=== PATIENT | male | born 1955 | race African-American/Black ===

== ENCOUNTER 2017-07-28 06:46 | Observation (INO) | payer OTHER ==
--- OUTSIDE RECORDS SUMMARY | 2017-07-28 06:48 | XMS REPORT | Clinical Summary ---
:1955 Author Organization [facility] Address [address] [place] [address] Care Team Providers Name Role Phone Baldemar Hernandes MD Primary Care Provider Allergies No Known Allergies Current Medications Prescription Sig. Disp. Refills Start Date End Date Status aspirin (ECOTRIN) Take 81 mg by Active 81 MG enteric mouth daily. coated tablet atorvastatin Take 40 mg by Active (LIPITOR) 40 MG mouth nightly. tablet ferrous sulfate 325 Take 325 mg by Active (65 FE) MG tablet mouth daily with breakfast. levothyroxine Take 50 mcg by Active (SYNTHROID, mouth every LEVOTHROID) 50 MCG morning. tablet zolpidem (AMBIEN) Take 10 mg by Active 10 mg tablet mouth nightly as needed for sleep. nitroglycerin Place 0.4 mg Active (NITROSTAT) 0.4 MG under the SL tablet tongue every 5 (five) minutes as needed for chest pain. thiamine 100 MG Take 100 mg by Active tablet mouth daily. clopidogrel Take 75 mg by 12/06/2016 Discontinued (PLAVIX) 75 mg mouth daily. tablet pantoprazole Take 40 mg by 12/06/2016 Discontinued (PROTONIX) 40 MG EC mouth daily. tablet rivaroxaban Take 20 mg by 12/06/2016 Discontinued (XARELTO) tablet mouth daily. HYDROcodone-acetami Take 1 tablet 12/06/2016 Discontinued nophen (NORCO) by mouth every 10-325 mg per 6 (six) hours tablet as needed for moderate pain. pantoprazole Take 20 mg by 12/06/2016 Discontinued (PROTONIX) 20 MG EC mouth daily. tablet pantoprazole Take 1 tablet 30 tablet 0 12/06/2016 01/05/2017 (PROTONIX) 40 MG EC (40 mg total) tablet by mouth daily for 30 days. pantoprazole Take 2 tablets 60 tablet 0 12/06/2016 12/06/2016 Discontinued (PROTONIX) 20 MG EC (40 mg total) tablet by mouth daily for 30 days. Active Problems Problem Noted Date CAD (coronary artery disease) 12/01/2015 H/O: CVA (cerebrovascular accident) 12/01/2015 Essential hypertension 12/01/2015 PUD (peptic ulcer disease) 12/01/2015 Hematemesis 11/30/2015 Hyperlipidemia 11/30/2015 Normochromic anemia 11/30/2015 Chest pain of uncertain etiology 11/29/2015 Encounters Date Type Specialty Care Team Description 03/06/2017 Emergency Emergency Medicine Page Duran, Chest pain, unspecified type (Primary Dx); Drug-seeking behavior 12/05/2016 - Emergency General Internal Domitila Cunha MD Hematemesis with nausea (Primary Dx); 12/06/2016 Medicine Yenny Tanner MD Chest pain at rest after 07/27/2016 Family History Medical History Relation Name Comments Heart disease Sister Relation Name Status Comments Sister Social History Tobacco Use Types Packs/Day Years Used Date Never Smoker Alcohol Use Drinks/Week oz/Week Comments Yes Socially Sex Assigned at Date Recorded Not on file Last Filed Vital Signs Vital Sign Reading Time Taken Blood Pressure 113/71 03/06/2017 10:30 PM CDT Pulse 68 03/06/2017 10:30 PM CDT Temperature 36.9 C (98.4 F) 03/06/2017 5:39 PM CDT Respiratory Rate 18 03/06/2017 10:30 PM CDT Oxygen Saturation 100% 03/06/2017 10:30 PM CDT Inhaled Oxygen Concentration - - Weight 91.6 kg (202 lb) 03/06/2017 5:37 PM CDT Height 172.7 cm (5' 8") 03/06/2017 5:37 PM CDT Body Mass Index 30.71 03/06/2017 5:37 PM CDT Plan of Treatment Health Maintenance Due Date Last Done Comments COLONOSCOPY 08/06/2003 ZOSTER VACCINE 2013 INFLUENZA VACCINE 12/06/2016 Results Estimated GFR (03/06/2017 9:47 PM)Only the most recent of2 resultswithin the time period is included. Component Value Ref Range GFR Non Af Amer 85 mL/min/1.73 m2 GFR Af Amer >90 mL/min/1.73 m2 Comment: Chronic kidney disease: <60 mL/min/1.73m2 Kidney failure: <15 mL/min/1.73m2 The estimated GFR is calculated from the IDMS-traceable Modification of Diet in Renal Disease Equation. The accuracy of the calculation is poor when the creatinine is normal. Calculated values >90 mL/min/1.73m2 are not reported. This equation has not been validated in children (<18 years), women, the elderly (>70 years), or ethnic groups other than Caucasians and Americans. Specimen Performing Laboratory Plasma specimen [facility] DEPARTMENT OF PATHOLOGY AND GENOMIC MEDICINE [address] [place] [address]. [address] [place] [address] Troponin (03/06/2017 9:47 PM)Only the most recent of2 resultswithin the time period is included. Component Value Ref Range Troponin <0.300 0.000 - 0.300 ng/mL Comment: The diagnostic value of a single normal or non-diagnostic result is questionable.Serial samples at 2-6 hour intervals are required to rule out acute myocardial injury. Specimen Performing Laboratory Plasma specimen [facility] DEPARTMENT OF PATHOLOGY AND [employer] MEDICINE [address] [place] [address]. [address] [place] [address] Partial thromboplastin time, activated (03/06/2017 9:47 PM) Component Value Ref Range PTT 27.8 23.0 - 36.0 sec Comment: PTT therapeutic range for unfractionated heparin is 66.0-112.0 seconds which corresponds to Anti-Xa 0.3-0.7 U/mL. The reference range has changed starting 10/06/2009 @12:00pm Specimen Performing Laboratory Blood [facility] DEPARTMENT OF PATHOLOGY AND [facility] [facility]ICINE [address] [place], [place] [address]. [address] [place] [address] Prothrombin time with INR (03/06/2017 9:47 PM)Only the most recent of2 resultswithin the time period is included. Component Value Ref Range Prothrombin time 13.2 12.0 - 15.0 sec INR 1.0 Comment: The International Normalized Ratio (INR) is a therapeutic monitoring tool for patients who are stable on oral anticoagulant therapy. An INR of 2.0-3.0 is suggested for deep vein thrombosis/pulmonary embolism. Specimen Performing Laboratory Blood [facility] DEPARTMENT OF PATHOLOGY AND GENOMIC MEDICINE [address] [place] [address] CBC with platelet and differential (03/06/2017 9:47 PM)Only the most recent of2 resultswithin the time period is included. Component Value Ref Range WBC 4.3 (L) 4.5 - 11.0 k/uL RBC 4.85 4.40 - 6.00 M/uL HGB 13.5 (L) 14.0 - 18.0 g/dL HCT 41.8 41.0 - 51.0 % MCV 86.2 82.0 - 100.0 fL MCH 27.8 27.0 - 34.0 pg MCHC 32.3 31.0 - 37.0 g/dL RDW - SD 47.0 37.0 - 55.0 fL MPV 10.6 8.8 - 13.2 fL Platelet count 222 150 - 400 K/uL Nucleated RBC 0.00 /100 WBC Neutrophils 45.3 39.0 - 69.0 % Lymphocytes 39.3 25.0 - 45.0 % Monocytes 12.1 (H) 0.0 - 10.0 % Eosinophils 2.6 0.0 - 5.0 % Basophils 0.2 0.0 - 1.0 % Immature granulocytes 0.5Comment: "Immature granulocytes" 0.0 - 1.0 % (promyelocytes, myelocytes, metamyelocytes) Specimen Performing Laboratory Blood [facility] PATHOLOGY [address] [address] Lipase level (03/06/2017 9:47 PM) Component Value Ref Range Lipase 45 23 - 300 U/L Specimen Performing Laboratory Plasma specimen [facility] PATHOLOGY AND [address] [address] Comprehensive metabolic panel (03/06/2017 9:47 PM)Only the most recent of2 resultswithin the time period is included. Component Value Ref Range Sodium 142 135 - 148 mEq/L Potassium 3.8 3.5 - 5.0 mEq/L Chloride 101 99 - 109 mEq/L CO2 26 24 - 31 mEq/L Anion gap 15 7 - 15 mEq/L Comment: Starting from August , anion gap calculation no longer incorporates potassium. Please note the change. BUN 13 8 - 24 mg/dL Creatinine 0.9 0.5 - 1.5 mg/dL Glucose 72 65 - 99 mg/dL Calcium 9.6 8.6 - 10.6 mg/dL Protein 8.8 (H) 6.3 - 8.2 g/dL Albumin 4.8 3.5 - 5.0 g/dL A/G ratio 1.20 0.70 - 3.80 Alkaline phosphatase 105 30 - 115 U/L AST 27 15 - 46 U/L ALT 15 10 - 55 U/L Total bilirubin 0.8 0.2 - 1.2 mg/dL Specimen Performing Laboratory Plasma specimen [facility] DEPARTMENT OF PATHOLOGY AND GENOMIC MEDICINE [address] [place] [address]. [address] [place] [address] XR Chest 2 Vw (03/06/2017 7:30 PM)Only the most recent of2 resultswithin the time period is included. Specimen Performing Laboratory [facility] [address] [place] [address] Narrative EXAMINATION:XR CHEST 2 VW CLINICAL HISTORY: Chest Pain COMPARISON:12/05/2016 IMPRESSION: No active disease in the chest. Lungs are clear. Cardiomediastinal silhouette is within normal limits. No effusion or pneumothorax noted. Visualized osseous structures are intact. [id number] Procedure Note Hm Interface, Radiology Results Incoming - 03/06/2017 7:58 PM CDT EXAMINATION: XR CHEST 2 VW CLINICAL HISTORY: Chest Pain COMPARISON: 12/05/2016 IMPRESSION: No active disease in the chest. Lungs are clear. Cardiomediastinal silhouette is within normal limits. No effusion or pneumothorax noted. Visualized osseous structures are intact. [facility]-[id number] ECG 12 lead (03/06/2017 5:28 PM)Only the most recent of3 resultswithin the time period is included. Component Value Ref Range Ventricular rate 68 Atrial rate 68 MA interval 136 QRSD interval 86 QT interval 412 QTC interval 438 P axis 1 40 QRS axis 1 -85 T wave axis -22 EKG impression Normal sinus rhythm-Left axis gngoszamh-Txmhvltz-qyrvkgctf infarct (cited on or before 06-DEC-2016)-Anterolateral infarct , age undetermined-Abnormal ECG-In automated comparison with ECG of 06-DEC-2016 09:26, -Significant changes have occurred- Specimen Performing Laboratory [facility] [address] [place] [address] duplex venous lower extremity (12/06/2016 2:30 PM) Specimen Performing Laboratory [facility] [address] [place] [address] Narrative Vascular Ultrasound Laboratory Lower Extremity Venous Report [address] [facility] [address], [place] [address] Pat.Name:MEI MAYERS Pat.ID:[id number] St.Date: 12/06/2016Refer.MD:ELZA LONG MD Exam Time: 2:06:00 PMStudy Type:LE Venous Height:102.76inDOBAge:1955 ,61Y Sex: MALESonogrphr: Vega Valdez RVT, RDMS Pat. Stat.:Inpatient Room:[address] TapeVol: SHIMNO, CPT - 4: [address] Echo Event ID:[id number] Order ID:[id number] Reason for Study:Edema. PMH of IL, stroke, DVT, PE, CAD. History / Clinical:Other,pain Race:B SUMMARY: DUPLEX SCAN OBSERVATIONS Deep VeinsSuperficial Veins RightLeft RightLeft EIV GSV (prox) NormalNormal CFV Normal Normal (above knee) Femoral Normal Normal GSV (dist) Normal Normal Profunda Normal Normal (below knee) Popliteal Incompetent Incompetent PT (prox) Normal NormalSSV PT (dist) Normal Normal Peroneal Normal Normal RIGHT:There is normal compressibility with no evidence of echogenic material noted within the lumen of the visualized veins.Colorflow and Doppler signals are normal. LEFT: There is normal compressibility with no evidence of echogenic material noted within the lumen of the visualized veins.Colorflow and Doppler signals are normal. PRELIMINARY FINDINGS 1. No evidence of deep venous thrombosis in the visualized veins. 2. Incompetence of the popliteal vein, bilaterally. PHYSICIAN INTERPRETATION Venous examination of the both lower extremities demonstrated no evidence of venous thrombosis in the visualized veins. Venous reflex seen in the popliteal vein, bilaterally. MEASUREMENTS: DOPPLER General Anatomy Right General A 0Left General An 0 Right General A 0.837 sLeft General An1.11 s Right General A 0 TIME Left General An 0 TIME Signed 12/06/2016 04:35 PM Remigio Lambert MD, RPVI Procedure Note Interface, Radiology Results In - 12/06/2016 4:35 PM CDT Vascular Ultrasound Laboratory Lower Extremity Venous Report [address] [place] [address] Pat.Name: MEI MAYERS Pat.ID: [id number] .Date: 12/06/2016 Refer.MD: ELZA LONG MD Exam Time: 2:06:00 PM Study Type:LE Venous Height: 102.76in Age: 3 1955,61Y Sex: MALE Sonogrphr: Vega Valdez RVT, YOLI Pat. Stat.:Inpatient Room: [address] Tape Vol: MK, [facility] - 4: [id number] Echo Event ID:[id number] Order ID: [id number] Reason for Study:Edema. PMH of IL, stroke, DVT, PE, CAD. History / Clinical:Other, pain Race: B SUMMARY: DUPLEX SCAN OBSERVATIONS Deep Veins Superficial Veins Right Left Right Left EIV GSV (prox) Normal Normal CFV Normal Normal (above knee) Femoral Normal Normal GSV (dist) Normal Normal Profunda Normal Normal (below knee) Popliteal Incompetent Incompetent PT (prox) Normal Normal SSV PT (dist) Normal Normal Peroneal Normal Normal RIGHT:There is normal compressibility with no evidence of echogenic material noted within the lumen of the visualized veins.Colorflow and Doppler signals are normal. LEFT: There is normal compressibility with no evidence of echogenic material noted within the lumen of the visualized veins.Colorflow and Doppler signals are normal. PRELIMINARY FINDINGS 1. No evidence of deep venous thrombosis in the visualized veins. 2. Incompetence of the popliteal vein, bilaterally. PHYSICIAN INTERPRETATION Venous examination of the both lower extremities demonstrated no evidence of venous thrombosis in the visualized veins. Venous reflex seen in the popliteal vein, bilaterally. MEASUREMENTS: DOPPLER General Anatomy Right General A 0 Left General An 0 Right General A 0.837 s Left General An 1.11 s Right General A 0 TIME Left General An 0 TIME Signed 12/06/2016 04:35 PM Remigio Lambert MD, RPVI Cv cta coronary arteries w contrast (12/06/2016 12:43 PM) Specimen Performing Laboratory [facility] [address] Nuclear Cardiology and Cardiac CT [address] [place] [address] CTA Coronary Arteries Report Pat.Name:MEI MAYERS Pat.ID:[id number] .Date: 12/06/2016 Refer.MD:ELZA LONG MD Exam Time: 11:29:00 AM Study Type:CTA Coronary Arteries Height:68inWeight:177lb BSA: 1.94 m2 DOBAge:1955,61Y Sex: MALEHR: 79 bpm Nuclear Tech:Liseth Valenzuela RT(R)(CT) CPT - 4: CCTA w Thoracic Aorta (NonCongenital) 73[address];34827 Nuclear Event ID:[id number] Order ID:[id number] Reason for Study:CAD, PE History / Clinical:Coronary artery disease, Hyperlipidemia, Hypertension, Shortness of breath, PCI 2004, 2006, h/o drug use, Family history CAD, HX pe Procedures:CTA Coronary Arteries Race:B SUMMARY: Technique: IV contrast was administered and sequential 0.[address] cuts were obtained through the chest using the Siemens Somatom Force CT scanner. Post-processing and 3D reconstruction were done using the ownCloud workstation. Interactive image viewing and volumetric display and analysis were also performed. CTA RESULTS Left Main: A normal sized 4.3 artery which arises normally from the left sinus of Valsalva and divides into the left anterior descending and circumflex coronary arteries. No significant atherosclerotic plaque is present. Left anterior descending (LAD): A normal sized 3.3mm artery which wraps around the apex and gives off two diagonal branches. Mild calcified and non-calcified atherosclerotic plaque is present in the proximal and mid segments with approximately 35% stenosis in the mid segment. The first diagonal is a 1.5 mm artery which has mild calcified and non-calcified atherosclerotic plaque present but with no significant stenosis. The second diagonal is a 2.0 mm artery which has mild calcified and non-calcified atherosclerotic plaque present but no significant stenosis. Left circumflex: A normal sized 4.8 mm dominant artery which arises normally from the left main and gives off four major obtuse marginal arteries before becoming the posterior descending artery. Mild calcified and non-calcified atherosclerotic plaque is present in the proximal segmentbut without significant stenosis. There is a 17 mm long patent stent after the takeoff of the first obtuse marginal artery. The first obtuse marginal is a 1.7 mm artery which has no significant atherosclerotic plaque present. The second obtuse marginal is a 2.0 mm bifurcating artery which has mild calcified and non-calcified atherosclerotic plaque present but no significant stenosis. The third obtuse marginal is a 1.5 mm artery which has no significant atherosclerotic plaque present. The fourth obtuse marginal is a 2.0 mm artery which has no significant atherosclerotic plaque present. The posterior descending is a 2.0 mm artery which has mild predominantly calcified atherosclerotic plaque present but no significant stenosis. Right coronary artery: A normal sized 3.0 mm non-dominant artery which arises normally from the right sinus of Valsalva and gives off several right ventricular branches, the posterior descending artery and the posterolateral artery. Mild predominantly calcified atherosclerotic plaque is present in the proximal segment but without significant stenosis. Ramus: None. Stents:Patent stent in the proximal to mid circumflex after the takeoff of the first obtuse marginal artery. . Bypass Grafts: None. Pulmonary Arteries: Normal pulmonary artery sizes with no pulmonary emboli identified even in the most distal subsegmental vessels. Left Atrial and Pulmonary Vein Dimensions: Left atrial size (A-P diameter) 3.8 cm. Normal PV anatomy Left superior PV16 mm. Left inferior PV13 mm. Right superior PV16 mm. Right inferior PV13 mm. There is no evidence of the left atrial appendage clot. There is a patent foramen ovale. Left Ventricular Valve Morphology/Function: Aortic valve is tri-leaflet and there is no evidence of stenosis or regurgitation. Mitral valve is normal without evidence of regurgitation. Thoracic Aortic Dimensions: No aortic aneurysm or dissection is seen. Aortic root3.5 cm. Sinotubular junction 2.9 cm. Mid ascending aorta 2.7 cm. Distal ascending aorta 2.5 cm. Aortic arch 2.1 cm.There is normal takeoff of the great vessels except that theleft vertebral artery arises directly from the aortic arch as a variant. Aortic Isthmus 2.2 cm. Descending thoracic aorta 2.2 cm. Pericardium: No pericardial effusion or pericardial thickening. Non-Cardiac Findings: Small hiatal hernia. CONCLUSION CT coronary angiography shows coronary atherosclerosis but no significant coronary artery stenosis. Patent stent in the proximal to mid circumflex after the takeoff of the first obtuse marginal artery. No aortic aneurysm or dissection is seen. Normal pulmonary artery sizes with no pulmonary emboli identified even in the most distal subsegmental vessels. Normal PV anatomy. There is no evidence of the left atrial appendage clot. STUDY QUALITY The study quality is excellent. COMMENTS None. The above report was based on a dedicated Cardiovascular CTA Protocol and interpreted by a [employer] Officer.Should a more comprehensive assessment of non-cardiovascular findings be desired, please consult a radiologist.These images are available in the [facility] [employer] PACS system. Signed 12/06/2016 01:19 PM Trino Russell MD Procedure Note Interface, Radiology Results In - 12/06/2016 1:22 PM CDT Nuclear Cardiology and Cardiac CT [address] [address] CTA Coronary Arteries Report Pat.Name: MEI MAYERS Pat.ID: [id number] .Date: 12/06/2016 Refer.MD: ELZA LONG MD Exam Time: 11:29:00 AM Study Type:CTA Coronary Arteries Height: 68in Weight: 177lb BSA: 1.94 m2 Age: 3 1955,61Y Sex: MALE HR: 79 bpm Nuclear Tech:Liseth Nicolas, RT(R)(CT) CPT - 4: CCTA w Thoracic Aorta (NonCongenital) 13246;82010 Nuclear Event ID:[id number] Order ID: [id number] Reason for Study:CAD, PE History / Clinical:Coronary artery disease, Hyperlipidemia, Hypertension, Shortness of breath, PCI 2004, 2006, h/o drug use, Family history CAD, HX pe Procedures:CTA Coronary Arteries Race: B SUMMARY: Technique: IV contrast was administered and sequential 0.[address] cuts were obtained through the chest using the Siemens Somatom Force CT scanner. Post-processing and 3D reconstruction were done using the [employer] workstation. Interactive image viewing and volumetric display and analysis were also performed. CTA RESULTS Left Main: A normal sized 4.3 artery which arises normally from the left sinus of Valsalva and divides into the left anterior descending and circumflex coronary arteries. No significant atherosclerotic plaque is present. Left anterior descending (LAD): A normal sized 3.3mm artery which wraps around the apex and gives off two diagonal branches. Mild calcified and non-calcified atherosclerotic plaque is present in the proximal and mid segments with approximately 35% stenosis in the mid segment. The first diagonal is a 1.5 mm artery which has mild calcified and non-calcified atherosclerotic plaque present but with no significant stenosis. The second diagonal is a 2.0 mm artery which has mild calcified and non-calcified atherosclerotic plaque present but no significant stenosis. Left circumflex: A normal sized 4.8 mm dominant artery which arises normally from the left main and gives off four major obtuse marginal arteries before becoming the posterior descending artery. Mild calcified and non-calcified atherosclerotic plaque is present in the proximal segment but without significant stenosis. There is a 17 mm long patent stent after the takeoff of the first obtuse marginal artery. The first obtuse marginal is a 1.7 mm artery which has no significant atherosclerotic plaque present. The second obtuse marginal is a 2.0 mm bifurcating artery which has mild calcified and non-calcified atherosclerotic plaque present but no significant stenosis. The third obtuse marginal is a 1.5 mm artery which has no significant atherosclerotic plaque present. The fourth obtuse marginal is a 2.0 mm artery which has no significant atherosclerotic plaque present. The posterior descending is a 2.0 mm artery which has mild predominantly calcified atherosclerotic plaque present but no significant stenosis. Right coronary artery: A normal sized 3.0 mm non-dominant artery which arises normally from the right sinus of Valsalva and gives off several right ventricular branches, the posterior descending artery and the posterolateral artery. Mild predominantly calcified atherosclerotic plaque is present in the proximal segment but without significant stenosis. Ramus: None. Stents: Patent stent in the proximal to mid circumflex after the takeoff of the first obtuse marginal artery. . Bypass Grafts: None. Pulmonary Arteries: Normal pulmonary artery sizes with no pulmonary emboli identified even in the most distal subsegmental vessels. Left Atrial and Pulmonary Vein Dimensions: Left atrial size (A-P diameter) 3.8 cm. Normal PV anatomy Left superior PV16 mm. Left inferior PV13 mm. Right superior PV16 mm. Right inferior PV13 mm. There is no evidence of the left atrial appendage clot. There is a patent foramen ovale. Left Ventricular Valve Morphology/Function: Aortic valve is tri-leaflet and there is no evidence of stenosis or regurgitation. Mitral valve is normal without evidence of regurgitation. Thoracic Aortic Dimensions: No aortic aneurysm or dissection is seen. Aortic root 3.5 cm. Sinotubular junction 2.9 cm. Mid ascending aorta 2.7 cm. Distal ascending aorta 2.5 cm. Aortic arch 2.1 cm. There is normal takeoff of the great vessels except that the left vertebral artery arises directly from the aortic arch as a variant. Aortic Isthmus 2.2 cm. Descending thoracic aorta 2.2 cm. Pericardium: No pericardial effusion or pericardial thickening. Non-Cardiac Findings: Small hiatal hernia. CONCLUSION CT coronary angiography shows coronary atherosclerosis but no significant coronary artery stenosis. Patent stent in the proximal to mid circumflex after the takeoff of the first obtuse marginal artery. No aortic aneurysm or dissection is seen. Normal pulmonary artery sizes with no pulmonary emboli identified even in the most distal subsegmental vessels. Normal PV anatomy. There is no evidence of the left atrial appendage clot. STUDY QUALITY The study quality is excellent. COMMENTS None. The above report was based on a dedicated Cardiovascular CTA Protocol and interpreted by a [employer]. Should a more comprehensive assessment of non-cardiovascular findings be desired, please consult a radiologist. These images are available in the [facility] [employer] PACS system. Signed 12/06/2016 01:19 PM Trino Russell MD B natriuretic peptide (12/05/2016 10:31 PM) Component Value Ref Range BNP 26 0 - 100 pg/mL Specimen Performing Laboratory Blood [facility] DEPARTMENT OF PATHOLOGY AND GENOMIC MEDICINE [address] [place] [id number] Creatine kinase, total (CPK) (12/05/2016 10:31 PM) Component Value Ref Range Creatine kinase 105 39 - 308 U/L Specimen Performing Laboratory Plasma specimen [facility] [facility] [address] [place] [phone] 07/27/2016 Insurance Payer Benefit Plan / Group Subscriber ID Type Phone Address [facility] O MEI MAYERS Personal/Family Self 1955 Home: [id number] [phone] [place] [address]
--- OUTSIDE RECORDS SUMMARY | 2017-07-28 06:50 | XMS REPORT ---
:1955 [facility] Organization [facility] Address [address] [place] [address] Care Team Providers Name Role Phone UNKNOWN, REFFERING Primary Care Provider Unavailable CONNOR FLORES Unavailable Unavailable ORLANDO WILSON Unavailable Unavailable GORAN ALTAMIRANO Unavailable Unavailable SWATHI MAY Unavailable Unavailable Marquise HERNÁNDEZ Unavailable Unavailable OTDEIDRA ROBBINS Unavailable Unavailable CAR PARIKH Unavailable Unavailable Problems This patient has no known problems. Allergies, Adverse Reactions, Alerts This patient has no known allergies or adverse reactions. Medications This patient has no known medications. Encounters Start End Encounter Admission Attending Care Care Encounter Date/Time Date/Time Type Type Clinicians Facility Department ID 2015-11-14 Inpatient [facility] [id number] 22:56:38 2017-04-11 2017-04-11 Outpatient [facility] [id number] 00:00:00 00:00:00 2016-12-30 2016-12-30 Outpatient [facility] [id number] 12:25:19 12:25:19 2016-12-29 2016-12-29 Outpatient [facility] [id number] 21:38:07 21:38:07 2016-12-29 2016-12-29 Emergency [facility] [id number] 19:59:36 19:59:36 Results Test Description Test Time Test Comments Text Results Atomic Results Result Comments TROPONIN I 2017-04-26 06:36:00 Test Item Value Reference Range Comments TROPONIN I (BEAKER) (test lrju=675) < ng/mL 0.00-0.15 Troponin I (TnI) levels must be interpreted in the context of the presenting symptoms and the clinical findings. Elevated TnI levels indicate myocardial damage, but are not specific for ischemic heart disease. Elevated TnI levels are seen in patients with other cardiac conditions (including myocarditis and congestive heart failure), and slight TnI elevations occur in patients with other conditions, including sepsis, renal failure, acidosis, acute neurological disease, and persistent tachyarrhythmia.COMPREHENSIVE METABOLIC [id number] 06:35:00 Test Item Value Reference Range Comments TOTAL PROTEIN (BEAKER) 6.8 gm/dL 6.0-8.5 (test ofmv=822) ALBUMIN (BEAKER) (test 3.6 g/dL 3.5-5.0 cvuz=7204) ALKALINE PHOSPHATASE 83 U/L 30-115 (BEAKER) (test undm=120) BILIRUBIN TOTAL (BEAKER) 0.6 mg/dL 0.1-1.2 (test havo=342) SODIUM (BEAKER) (test 138 meq/L 135-148 pzpn=165) POTASSIUM (BEAKER) (test 3.9 meq/L 3.6-5.5 zogj=279) CHLORIDE (BEAKER) (test 106 meq/L 98-106 avfu=851) CO2 (BEAKER) (test 26 meq/L 20-29 qvrp=376) BLOOD UREA NITROGEN 13 mg/dL 10-26 (BEAKER) (test ljdj=973) CREATININE (BEAKER) (test 0.90 mg/dL 0.50-1.20 lrdn=277) GLUCOSE RANDOM (BEAKER) 112 mg/dL 70-110 (test spzh=927) CALCIUM (BEAKER) (test 9.0 mg/dL 8.5-10.5 plkm=741) AST (SGOT) (BEAKER) (test 15 U/L 5-40 xhez=298) ALT (SGPT) (BEAKER) (test 13 U/L 5-50 stnf=650) EGFR (BEAKER) (test 103 mL/min/1.73 sq ESTIMATED GFR IS NOT iqin=0164) m ACCURATE CREATININE CLEARANCE IN PREDICTING GLOMERULAR FILTRATION RATE. ESTIMATED GFR IS NOT APPLICABLE FOR DIALYSIS PATIENTS. CBC W/PLT COUNT & AUTO [id number] 06:31:00 Test Item Value Reference Range Comments WHITE BLOOD CELL COUNT (BEAKER) (test xpuh=147) 3.8 K/ L 4.0-10.0 RED BLOOD CELL COUNT (BEAKER) (test jnzg=269) 4.11 M/ L 4.20-5.80 HEMOGLOBIN (BEAKER) (test uvoc=608) 11.4 GM/DL 13.0-16.8 HEMATOCRIT (BEAKER) (test zfpt=772) 35.0 % 40.0-50.0 MEAN CORPUSCULAR VOLUME (BEAKER) (test gxjx=556) 85.1 fL 82.0-98.0 MEAN CORPUSCULAR HEMOGLOBIN (BEAKER) (test 27.7 pg 27.0-33.0 cpgm=658) MEAN CORPUSCULAR HEMOGLOBIN CONC (BEAKER) (test 32.6 GM/DL 32.0-36.0 uhmm=624) RED CELL DISTRIBUTION WIDTH (BEAKER) (test 14.9 % 10.3-14.2 tffj=760) PLATELET COUNT (BEAKER) (test gvur=202) 176 K/CU MM 150-430 MEAN PLATELET VOLUME (BEAKER) (test qmen=385) 7.6 fL 6.5-10.5 NUCLEATED RED BLOOD CELLS (BEAKER) (test 0 /100 WBC 0-0 pfhb=020) NEUTROPHILS RELATIVE PERCENT (BEAKER) (test 48 % wexa=257) LYMPHOCYTES RELATIVE PERCENT (BEAKER) (test 35 % wgod=617) MONOCYTES RELATIVE PERCENT (BEAKER) (test 13 % wrae=659) EOSINOPHILS RELATIVE PERCENT (BEAKER) (test 4 % laeu=662) BASOPHILS RELATIVE PERCENT (BEAKER) (test 0 % tpem=135) NEUTROPHILS ABSOLUTE COUNT (BEAKER) (test 1.80 K/ L 1.80-8.00 xqdm=655) LYMPHOCYTES ABSOLUTE COUNT (BEAKER) (test 1.30 K/ L 1.48-4.50 bnqt=541) MONOCYTES ABSOLUTE COUNT (BEAKER) (test 0.50 K/ L 0.00-1.30 lwhb=680) EOSINOPHILS ABSOLUTE COUNT (BEAKER) (test 0.20 K/ L 0.00-0.50 vzop=840) BASOPHILS ABSOLUTE COUNT (BEAKER) (test 0.00 K/ L 0.00-0.20 oqgz=042) [id number] 06:27:00 Test Item Value Reference Range Comments MAGNESIUM (BEAKER) (test tjzo=123) 2.2 mg/dL 1.5-3.0 TROPONIN [id number] 17:59:00 Test Item Value Reference Range Comments TROPONIN I (BEAKER) (test rbwu=822) < ng/mL 0.00-0.15 Troponin I (TnI) levels must be interpreted in the context of the presenting symptoms and the clinical findings. Elevated TnI levels indicate myocardial damage, but are not specific for ischemic heart disease. Elevated TnI levels are seen in patients with other cardiac conditions (including myocarditis and congestive heart failure), and slight TnI elevations occur in patients with other conditions, including sepsis, renal failure, acidosis, acute neurological disease, and persistent tachyarrhythmia.CREATINE KINASE (CK), TOTAL AND [id number] 17:58:00 Test Item Value Reference Range Comments CREATINE KINASE TOTAL (BEAKER) (test riqw=829) 103 U/L 40-250 CREATINE KINASE-MB (BEAKER) (test ppgr=294) 0.7 ng/mL 0.0-4.9 CREATINE KINASE-MB INDEX (BEAKER) (test ydyu=530) 0.7 % CK-MB Reference Range:<5 Normal5-10 Borderline>10 AbnormalHEMOGLOBIN [id number] 11:25:00 Test Item Value Reference Range Comments HEMOGLOBIN A1C (BEAKER) (test escj=013) 5.3 % 4.3-6.1 CBC W/PLT COUNT & AUTO [id number] 11:13:00 Test Item Value Reference Range Comments WHITE BLOOD CELL COUNT (BEAKER) (test swyr=357) 4.1 K/ L 4.0-10.0 RED BLOOD CELL COUNT (BEAKER) (test aais=476) 4.44 M/ L 4.20-5.80 HEMOGLOBIN (BEAKER) (test dxnh=417) 12.3 GM/DL 13.0-16.8 HEMATOCRIT (BEAKER) (test gukw=100) 37.8 % 40.0-50.0 MEAN CORPUSCULAR VOLUME (BEAKER) (test ymjr=885) 85.3 fL 82.0-98.0 MEAN CORPUSCULAR HEMOGLOBIN (BEAKER) (test 27.7 pg 27.0-33.0 wbtn=421) MEAN CORPUSCULAR HEMOGLOBIN CONC (BEAKER) (test 32.5 GM/DL 32.0-36.0 mikk=747) RED CELL DISTRIBUTION WIDTH (BEAKER) (test 16.0 % 10.3-14.2 ruyf=578) PLATELET COUNT (BEAKER) (test vmhj=627) 174 K/CU MM 150-430 MEAN PLATELET VOLUME (BEAKER) (test etvp=397) 8.3 fL 6.5-10.5 NUCLEATED RED BLOOD CELLS (BEAKER) (test 0 /100 WBC 0-0 aksz=023) NEUTROPHILS RELATIVE PERCENT (BEAKER) (test 56 % cwco=364) LYMPHOCYTES RELATIVE PERCENT (BEAKER) (test 29 % dysk=911) MONOCYTES RELATIVE PERCENT (BEAKER) (test 11 % rqvh=616) EOSINOPHILS RELATIVE PERCENT (BEAKER) (test 3 % traq=493) BASOPHILS RELATIVE PERCENT (BEAKER) (test 1 % yryk=966) NEUTROPHILS ABSOLUTE COUNT (BEAKER) (test 2.30 K/ L 1.80-8.00 ctoi=999) LYMPHOCYTES ABSOLUTE COUNT (BEAKER) (test 1.20 K/ L 1.48-4.50 iprq=804) MONOCYTES ABSOLUTE COUNT (BEAKER) (test 0.50 K/ L 0.00-1.30 xkio=995) EOSINOPHILS ABSOLUTE COUNT (BEAKER) (test 0.10 K/ L 0.00-0.50 qfxk=107) BASOPHILS ABSOLUTE COUNT (BEAKER) (test 0.10 K/ L 0.00-0.20 hala=130) CREATINE KINASE (CK), TOTAL AND [id number] 09:35:00 Test Item Value Reference Range Comments CREATINE KINASE TOTAL (BEAKER) (test fldt=086) 92 U/L 40-250 CREATINE KINASE-MB (BEAKER) (test knew=935) 0.8 ng/mL 0.0-4.9 CREATINE KINASE-MB INDEX (BEAKER) (test izou=393) 0.9 % CK-MB Reference Range:<5 Normal5-10 Borderline>10 AbnormalLIPID [id number] 09:29:00 Test Item Value Reference Range Comments TRIGLYCERIDES (BEAKER) (test kzmu=250) 62 mg/dL CHOLESTEROL (BEAKER) (test ajdq=609) 183 mg/dL HDL CHOLESTEROL (BEAKER) (test jobt=743) 62 mg/dL LDL CHOLESTEROL CALCULATED (BEAKER) (test 109 mg/dL zuip=863) Triglyceride Reference Range: Low Risk <150 Borderline 150- 199 High Risk 200-499 Very High Risk >=500Cholesterol Reference Range: Low Risk <200 Borderline 200-239 High Risk > 240HDL Cholesterol Reference Range: Low Risk >=60 High Risk <40LDL Cholesterol Reference Range: Optimal <100 Near Optimal 100-129 Borderline 130-159 High 160-189 Very High >=190BASIC METABOLIC [id number] 09:28:00 Test Item Value Reference Range Comments SODIUM (BEAKER) (test 143 meq/L 135-148 mjbq=846) POTASSIUM (BEAKER) (test 3.8 meq/L 3.6-5.5 lxqp=602) CHLORIDE (BEAKER) (test 108 meq/L 98-106 olyf=065) CO2 (BEAKER) (test 27 meq/L 20-29 eepl=564) BLOOD UREA NITROGEN 11 mg/dL 10-26 (BEAKER) (test nifn=936) CREATININE (BEAKER) (test 0.90 mg/dL 0.50-1.20 yvzl=476) GLUCOSE RANDOM (BEAKER) 80 mg/dL 70-110 (test jktf=993) CALCIUM (BEAKER) (test 9.2 mg/dL 8.5-10.5 llsz=929) EGFR (BEAKER) (test 103 mL/min/1.73 sq m ESTIMATED GFR IS NOT ohpj=9221) ACCURATE CREATININE CLEARANCE IN PREDICTING GLOMERULAR FILTRATION RATE. ESTIMATED GFR IS NOT APPLICABLE FOR DIALYSIS PATIENTS. TROPONIN [id number] 08:27:00 Test Item Value Reference Range Comments TROPONIN I (BEAKER) (test uyzr=927) < ng/mL 0.00-0.15 Troponin I (TnI) levels must be interpreted in the context of the presenting symptoms and the clinical findings. Elevated TnI levels indicate myocardial damage, but are not specific for ischemic heart disease. Elevated TnI levels are seen in patients with other cardiac conditions (including myocarditis and congestive heart failure), and slight TnI elevations occur in patients with other conditions, including sepsis, renal failure, acidosis, acute neurological disease, and persistent tachyarrhythmia.CT, CHEST WITH IV CONTRAST- PE TEST [id number] 02:06:00Reason for exam:->CHEST PAINWhat is the patient's sedation requirement?->No SedationFINAL REPORT EXAMINATION: CHEST CT / PE PROTOCOL CLINICAL HISTORY: CHEST PAIN, SHORTNESS OF BREATH COMPARISON EXAMINATION: 09/15/2015, 03/19/2015, 05/08/2007. TECHNIQUE: Following the administration of I.V. contrast, axial images were acquired through the pulmonary arteries during the early arterial phase of imaging. Following a brief delay, additional axial tomographic imageswere acquired through the thorax. Following postprocessing, coronal and sagittal reformatted images were created and reviewed. The exam was performed according to our departmental dose optimization program which includes automated exposure control , adjustment of the mA and/or kV according to patient'ssize and/or use of iterative reconstructive technique. FINDINGS: No evidence of a central pulmonaryembolus. Evaluation of the smaller pulmonary arteries is limited by suboptimal contrast opacification during the early arterial phase of imaging. The thoracic aorta is normal in caliber. No evidence ofan aortic dissection. The heart is mildly prominent. No evidence of a pericardial effusion. The esophagus is decompressed. No evidence of pathologic lymphadenopathy. The trachea and central airways demonstrate senescent changes of aging. No definite evidence of a discrete endobronchial lesion or significant endoluminal debris. Small curvilinear and reticulonodular opacities are again noted in both lungs, stable. No definite evidence of new lung consolidation, pulmonary edema, pleural effusion, pneumothorax or pneumomediastinum. Limited images of the upper abdomen demonstrate postoperative changes of the stomach. No evidence of an acute osseous abnormality. IMPRESSION: No evidence of a central pulmonary embolus. Evaluation of the smaller pulmonary arteries was limited secondary to suboptimal contrast opacification. Small scattered curvilinear and reticulonodular lung opacities, stable. Postinflammatory change / scarring favored. Signed: Flower Brown [facility] Verified Date/Time: 04/25/2017 02:06:53 Reading Location: [address] Reading Room [id number] 01:05:00 Test Item Value Reference Range Comments PROTIME (BEAKER) (test xepm=449) 10.9 seconds 9.3-12.0 INR (BEAKER) (test dfcb=594) 1.0 <=5.9 PARTIAL THROMBOPLASTIN TIME (BEAKER) (test 28.7 seconds 23.0-35.0 lopf=243) RECOMMENDED COUMADIN/WARFARIN INR THERAPY RANGESSTANDARD DOSE: 2.0 - 3.0 Includes: PROPHYLAXIS forvenous thrombosis, systemic embolization; TREATMENT for venous thrombosis and/or pulmonary embolus.HIGH RISK: Target INR is 2.5-3.5 for patients with mechanical heart valves.CBC W/PLT COUNT & AUTO [id number] 00:48:00 Test Item Value Reference Range Comments WHITE BLOOD CELL COUNT (BEAKER) (test xjiq=266) 5.9 K/ L 4.0-10.0 RED BLOOD CELL COUNT (BEAKER) (test wwdb=791) 4.90 M/ L 4.20-5.80 HEMOGLOBIN (BEAKER) (test bkmy=641) 13.5 GM/DL 13.0-16.8 HEMATOCRIT (BEAKER) (test jran=385) 41.8 % 40.0-50.0 MEAN CORPUSCULAR VOLUME (BEAKER) (test dfxp=610) 85.2 fL 82.0-98.0 MEAN CORPUSCULAR HEMOGLOBIN (BEAKER) (test 27.6 pg 27.0-33.0 qwte=919) MEAN CORPUSCULAR HEMOGLOBIN CONC (BEAKER) (test 32.4 GM/DL 32.0-36.0 jbfw=420) RED CELL DISTRIBUTION WIDTH (BEAKER) (test 14.4 % 10.3-14.2 fgqr=682) PLATELET COUNT (BEAKER) (test kmbk=265) 221 K/CU MM 150-430 MEAN PLATELET VOLUME (BEAKER) (test ozse=583) 9.3 fL 6.5-10.5 (MANUAL DIFFERENTIAL)2017-04-25 00:48:00 Test Item Value Reference Range Comments NEUTROPHILS - REL (DIFF) (BEAKER) (test mvtq=4541) 52 % LYMPHOCYTES - REL (DIFF) (BEAKER) (test gzbj=3379) 42 % MONOCYTES - REL (DIFF) (BEAKER) (test dseg=3451) 5 % EOSINOPHILS - REL (DIFF) (BEAKER) (test viok=6176) 1 % NEUTROPHILS - ABS (DIFF) (BEAKER) (test wjfu=5560) 3.07 K/ L 1.80-8.00 LYMPHOCYTES - ABS (DIFF) (BEAKER) (test bfbc=8513) 2.48 K/ L 1.48-4.50 MONOCYTES - ABS (DIFF) (BEAKER) (test yomk=1245) 0.30 K/ L 0.00-1.30 EOSINOPHILS - ABS (DIFF) (BEAKER) (test queo=9933) 0.06 K/ L 0.00-0.50 TOTAL COUNTED (BEAKER) (test tlal=6128) 100 WBC MORPHOLOGY (BEAKER) (test zcwj=545) Normal PLT MORPHOLOGY (BEAKER) (test qzrt=911) Normal RBC MORPHOLOGY (BEAKER) (test sodb=878) Normal CREATINE KINASE (CK), TOTAL AND [id number] 23:58:00 Test Item Value Reference Range Comments CREATINE KINASE TOTAL (BEAKER) (test feaw=087) 107 U/L 40-250 CREATINE KINASE-MB (BEAKER) (test mdkq=917) 0.6 ng/mL 0.0-4.9 CREATINE KINASE-MB INDEX (BEAKER) (test mrjh=747) 0.6 % CK-MB Reference Range:<5 Normal5-10 Borderline>10 AbnormalTROPONIN [id number] 23:58:00 Test Item Value Reference Range Comments TROPONIN I (BEAKER) (test fxos=821) < ng/mL 0.00-0.15 Troponin I (TnI) levels must be interpreted in the context of the presenting symptoms and the clinical findings. Elevated TnI levels indicate myocardial damage, but are not specific for ischemic heart disease. Elevated TnI levels are seen in patients with other cardiac conditions (including myocarditis and congestive heart failure), and slight TnI elevations occur in patients with other conditions, including sepsis, renal failure, acidosis, acute neurological disease, and persistent tachyarrhythmia.BASIC METABOLIC [id number] 23:49:00 Test Item Value Reference Range Comments SODIUM (BEAKER) (test 140 meq/L 135-148 bnye=511) POTASSIUM (BEAKER) (test 5.0 meq/L 3.6-5.5 Specimen markedly olof=179) hemolyzed CHLORIDE (BEAKER) (test 107 meq/L 98-106 ufnd=826) CO2 (BEAKER) (test 23 meq/L 20-29 gwnc=069) BLOOD UREA NITROGEN 11 mg/dL 10-26 (BEAKER) (test znfe=180) CREATININE (BEAKER) (test 0.80 mg/dL 0.50-1.20 Specimen markedly olut=111) hemolyzed GLUCOSE RANDOM (BEAKER) 71 mg/dL 70-110 (test ukvo=181) CALCIUM (BEAKER) (test 9.3 mg/dL 8.5-10.5 ybpa=691) EGFR (BEAKER) (test 118 mL/min/1.73 sq m ESTIMATED GFR IS NOT npts=1773) ACCURATE CREATININE CLEARANCE IN PREDICTING GLOMERULAR FILTRATION RATE. ESTIMATED GFR IS NOT APPLICABLE FOR DIALYSIS PATIENTS. [id number] 23:43:00 Test Item Value Reference Range Comments MAGNESIUM (BEAKER) (test 3.2 mg/dL 1.5-3.0 Specimen markedly hemolyzed guje=917) RAD, CHEST, 2 [id number] 21:20:00Reason for exam:->chest painFINAL REPORT EXAMINATION: 2 VIEW CHEST INDICATION: CHEST PAIN IMPRESSION: No comparison studies are available. No evidence of a discrete pneumonia, pulmonary edema or pleural effusion. The heart is mildly enlarged. Mediastinal contours are sharp. No evidence of an acute osseous abnormality or pneumothorax. There is gaseous distention of the visualized bowel, nonspecific. Dedicated abdominal imaging could be performed for further evaluation if clinically appropriate. Signed: [facility] Verified Date/Time: 04/24 21:20:58 Reading Location: [address] Reading Room TISSUE [id number] 17:51:00Surgical Pathology Report Case: [id number] Authorizing Provider: Carlitos Quesada MD Collected: 02/28/2017 [id number] Ordering Location: [address] MED/SURG Received: 03/01/2017 1141 Pathologist: Jose Hendricks MD Specimens: A) - Biopsy, Gastric B) - Biopsy, Gastroesophageal Junction A. STOMACH, BIOPSY:- ANTRAL MUCOSA WITH MILD CHRONIC INACTIVE GASTRITIS - NEGATIVE FOR INTESTINAL METAPLASIA, DYSPLASIA, AND MALIGNANCY - NEGATIVE FOR H. PYLORI ON WARTHIN- STARRY SPECIAL STAINB. GASTROESOPHAGEAL JUNCTION, BIOPSY:- CARDIAC-TYPE COLUMNAR MUCOSA WITH MILD CHRONIC, FOCALLY ACTIVE INFLAMMATION AND REACTIVE CHANGES - NEGATIVE FOR H. PYLORI ON ROUTINE HISTOLOGIC STAINS - NEGATIVE FOR INTESTINAL METAPLASIA, DYSPLASIA, AND MALIGNANCY- SQUAMOUS EPITHELIUM ABSENT Signing Pathologist Direct Phone Line:[phone] signed by Jose Hendricks MD on 03/02/2017 at 5:51 [id number], [id number] дмитрийThe paperwork, containers, and cassettes are all labeled [id number].The specimen is received in formalin in 2 containers labeled with the patient's name (TALIB) and medical record number.A. The specimen labeled "biopsy, gastric" consists of a 0.3 x 0.2 x 0.1 cm fragment of cummings-white tissue, which is entirely submitted in a single cassette labeled A1.B. The specimen labeled "biopsy, gastroesophageal junction" consists of 2 fragments of cummings-white tissue measuring 0.3-0.4 cm in greatest dimension. The specimen is entirely submitted in a single cassette labeled B1.Microscopic examination is performed and is incorporated in the diagnostic line.[facility] Department ofPathology, [id number] [place] [id number], Tel [facility], Department of Pathology, [address] [place] [address], [facility], [address] [place] [address], [id number] [id number] 14:58:00 Test Item Value Reference Range Comments TROPONIN I (BEAKER) (test gdrt=808) 0.01 ng/mL 0.00-0.15 Troponin I (TnI) levels must be interpreted in the context of the presenting symptoms and the clinical findings. Elevated TnI levels indicate myocardial damage, but are not specific for ischemic heart disease. Elevated TnI levels are seen in patients with other cardiac conditions (including myocarditis and congestive heart failure), and slight TnI elevations occur in patients with other conditions, including sepsis, renal failure, acidosis, acute neurological disease, and persistent tachyarrhythmia.TROPONIN [id number] 05:27:00 Test Item Value Reference Range Comments TROPONIN I (BEAKER) (test wljt=988) 0.02 ng/mL 0.00-0.15 Troponin I (TnI) levels must be interpreted in the context of the presenting symptoms and the clinical findings. Elevated TnI levels indicate myocardial damage, but are not specific for ischemic heart disease. Elevated TnI levels are seen in patients with other cardiac conditions (including myocarditis and congestive heart failure), and slight TnI elevations occur in patients with other conditions, including sepsis, renal failure, acidosis, acute neurological disease, and persistent tachyarrhythmia.LIPID [id number] 05:21:00 Test Item Value Reference Range Comments TRIGLYCERIDES (BEAKER) (test acrd=624) 44 mg/dL CHOLESTEROL (BEAKER) (test ckqf=552) 184 mg/dL HDL CHOLESTEROL (BEAKER) (test icxw=152) 56 mg/dL LDL CHOLESTEROL CALCULATED (BEAKER) (test 119 mg/dL zomd=762) Triglyceride Reference Range: Low Risk <150 Borderline 150- 199 High Risk 200-499 Very High Risk >=500Cholesterol Reference Range: Low Risk <200 Borderline 200-239 High Risk > 240HDL Cholesterol Reference Range: Low Risk >=60 High Risk <40LDL Cholesterol Reference Range: Optimal <100 Near Optimal 100-129 Borderline 130-159 High 160-189 Very High >=190COMPREHENSIVE METABOLIC [id number] 05:21:00 Test Item Value Reference Range Comments TOTAL PROTEIN (BEAKER) 7.0 gm/dL 6.0-8.5 (test apyx=339) ALBUMIN (BEAKER) (test 3.7 g/dL 3.5-5.0 oemh=4186) ALKALINE PHOSPHATASE 87 U/L 30-115 (BEAKER) (test uzmz=240) BILIRUBIN TOTAL (BEAKER) 0.7 mg/dL 0.1-1.2 (test btre=904) SODIUM (BEAKER) (test 141 meq/L 135-148 hfkz=963) POTASSIUM (BEAKER) (test 3.6 meq/L 3.6-5.5 aoah=279) CHLORIDE (BEAKER) (test 108 meq/L 98-106 bkqq=303) CO2 (BEAKER) (test 29 meq/L 20-29 jixb=512) BLOOD UREA NITROGEN 15 mg/dL 10-26 (BEAKER) (test hqof=562) CREATININE (BEAKER) (test 0.82 mg/dL 0.50-1.20 otss=655) GLUCOSE RANDOM (BEAKER) 59 mg/dL 70-110 (test yhtn=602) CALCIUM (BEAKER) (test 9.2 mg/dL 8.5-10.5 rioz=056) AST (SGOT) (BEAKER) (test 14 U/L 5-40 olyn=900) ALT (SGPT) (BEAKER) (test 9 U/L 5-50 cayt=167) EGFR (BEAKER) (test 115 mL/min/1.73 sq ESTIMATED GFR IS NOT gveq=1928) m ACCURATE CREATININE CLEARANCE IN PREDICTING GLOMERULAR FILTRATION RATE. ESTIMATED GFR IS NOT APPLICABLE FOR DIALYSIS PATIENTS. HEMOGLOBIN [id number] 05:19:00 Test Item Value Reference Range Comments HEMOGLOBIN A1C (BEAKER) (test iejb=436) 5.3 % 4.3-6.1 CBC W/PLT COUNT & AUTO [id number] 05:00:00 Test Item Value Reference Range Comments WHITE BLOOD CELL COUNT (BEAKER) (test ywew=804) 4.1 K/ L 4.0-10.0 RED BLOOD CELL COUNT (BEAKER) (test moug=820) 4.29 M/ L 4.20-5.80 HEMOGLOBIN (BEAKER) (test vqzf=212) 12.1 GM/DL 13.0-16.8 HEMATOCRIT (BEAKER) (test zfpg=754) 35.9 % 40.0-50.0 MEAN CORPUSCULAR VOLUME (BEAKER) (test vsvt=568) 83.7 fL 82.0-98.0 MEAN CORPUSCULAR HEMOGLOBIN (BEAKER) (test 28.2 pg 27.0-33.0 jfcs=375) MEAN CORPUSCULAR HEMOGLOBIN CONC (BEAKER) (test 33.7 GM/DL 32.0-36.0 fsxk=217) RED CELL DISTRIBUTION WIDTH (BEAKER) (test 14.9 % 10.3-14.2 zfxh=087) PLATELET COUNT (BEAKER) (test gbql=126) 185 K/CU MM 150-430 MEAN PLATELET VOLUME (BEAKER) (test vtbk=316) 10.0 fL 6.5-10.5 NUCLEATED RED BLOOD CELLS (BEAKER) (test 0 /100 WBC 0-0 kkze=419) NEUTROPHILS RELATIVE PERCENT (BEAKER) (test 39 % ykee=202) LYMPHOCYTES RELATIVE PERCENT (BEAKER) (test 41 % buyj=419) MONOCYTES RELATIVE PERCENT (BEAKER) (test 16 % vuzg=053) EOSINOPHILS RELATIVE PERCENT (BEAKER) (test 4 % swem=073) BASOPHILS RELATIVE PERCENT (BEAKER) (test 1 % fhwq=775) NEUTROPHILS ABSOLUTE COUNT (BEAKER) (test 1.59 K/ L 1.80-8.00 oilw=017) LYMPHOCYTES ABSOLUTE COUNT (BEAKER) (test 1.71 K/ L 1.48-4.50 imdb=440) MONOCYTES ABSOLUTE COUNT (BEAKER) (test 0.64 K/ L 0.00-1.30 eelo=849) EOSINOPHILS ABSOLUTE COUNT (BEAKER) (test 0.17 K/ L 0.00-0.50 oxnb=351) BASOPHILS ABSOLUTE COUNT (BEAKER) (test 0.02 K/ L 0.00-0.20 xnaa=888) RAD, CHEST, 1 VIEW, NON [id number] 20:14:00Reason for exam:->CHEST PAINPt has chest pain started around 3:30 after walking. Chest pain describe as heavy. Should this be performed at the bedside?->YesFINAL REPORT EXAMINATION: AP PORTABLE CHEST RADIOGRAPH CLINICAL INDICATION:Chest pain IMPRESSION: Compared with 01/13/2017. No evidence of new focal lung consolidation, pulmonary edema or pleural effusion. The heart size is normal. Mediastinal contours are sharp and stable. No evidence of an acute osseous abnormality or pneumothorax. Signed: Flower Brown MDRthe [facility] [place] Verified Date /Time: 02/27/2017 20:14:06 Reading Location: [address] Reading Room . [id number] 19:24:00 Test Item Value Reference Range Comments TROPONIN I (BEAKER) (test ecwv=270) 0.02 ng/mL 0.00-0.15 Troponin I (TnI) levels must be interpreted in the context of the presenting symptoms and the clinical findings. Elevated TnI levels indicate myocardial damage, but are not specific for ischemic heart disease. Elevated TnI levels are seen in patients with other cardiac conditions (including myocarditis and congestive heart failure), and slight TnI elevations occur in patients with other conditions, including sepsis, renal failure, acidosis, acute neurological disease, and persistent tachyarrhythmia.COMPREHENSIVE METABOLIC [id number] 19:23:00 Test Item Value Reference Range Comments TOTAL PROTEIN (BEAKER) 8.3 gm/dL 6.0-8.5 (test nvjs=138) ALBUMIN (BEAKER) (test 4.4 g/dL 3.5-5.0 arpf=6366) ALKALINE PHOSPHATASE 106 U/L 30-115 (BEAKER) (test kuwk=492) BILIRUBIN TOTAL (BEAKER) 0.8 mg/dL 0.1-1.2 (test pwgf=005) SODIUM (BEAKER) (test 140 meq/L 135-148 hlom=211) POTASSIUM (BEAKER) (test 3.4 meq/L 3.6-5.5 yhqu=210) CHLORIDE (BEAKER) (test 105 meq/L 98-106 wyzm=887) CO2 (BEAKER) (test 26 meq/L 20-29 kltg=477) BLOOD UREA NITROGEN 15 mg/dL 10-26 (BEAKER) (test dfss=113) CREATININE (BEAKER) (test 0.92 mg/dL 0.50-1.20 sxzc=958) GLUCOSE RANDOM (BEAKER) 68 mg/dL 70-110 (test yzkd=884) CALCIUM (BEAKER) (test 9.8 mg/dL 8.5-10.5 lytl=967) AST (SGOT) (BEAKER) (test 18 U/L 5-40 tesk=184) ALT (SGPT) (BEAKER) (test 12 U/L 5-50 kpse=930) EGFR (BEAKER) (test 101 mL/min/1.73 sq ESTIMATED GFR IS NOT tovg=3002) m ACCURATE CREATININE CLEARANCE IN PREDICTING GLOMERULAR FILTRATION RATE. ESTIMATED GFR IS NOT APPLICABLE FOR DIALYSIS PATIENTS. CBC W/PLT COUNT & AUTO [id number] 19:11:00 Test Item Value Reference Range Comments WHITE BLOOD CELL COUNT (BEAKER) (test tkgx=795) 4.4 K/ L 4.0-10.0 RED BLOOD CELL COUNT (BEAKER) (test jmrc=264) 4.86 M/ L 4.20-5.80 HEMOGLOBIN (BEAKER) (test mcub=244) 14.1 GM/DL 13.0-16.8 HEMATOCRIT (BEAKER) (test dglp=958) 40.9 % 40.0-50.0 MEAN CORPUSCULAR VOLUME (BEAKER) (test vdwi=388) 84.2 fL 82.0-98.0 MEAN CORPUSCULAR HEMOGLOBIN (BEAKER) (test 29.0 pg 27.0-33.0 jnsb=758) MEAN CORPUSCULAR HEMOGLOBIN CONC (BEAKER) (test 34.5 GM/DL 32.0-36.0 ulhu=927) RED CELL DISTRIBUTION WIDTH (BEAKER) (test 14.9 % 10.3-14.2 gxpo=571) PLATELET COUNT (BEAKER) (test bope=092) 195 K/CU MM 150-430 MEAN PLATELET VOLUME (BEAKER) (test xtns=679) 10.2 fL 6.5-10.5 NUCLEATED RED BLOOD CELLS (BEAKER) (test 0 /100 WBC 0-0 gzbo=929) NEUTROPHILS RELATIVE PERCENT (BEAKER) (test 46 % ygrx=635) LYMPHOCYTES RELATIVE PERCENT (BEAKER) (test 42 % yndv=367) MONOCYTES RELATIVE PERCENT (BEAKER) (test 10 % vtnv=461) EOSINOPHILS RELATIVE PERCENT (BEAKER) (test 2 % cxdy=382) BASOPHILS RELATIVE PERCENT (BEAKER) (test 1 % vsoj=662) NEUTROPHILS ABSOLUTE COUNT (BEAKER) (test 2.03 K/ L 1.80-8.00 bamw=409) LYMPHOCYTES ABSOLUTE COUNT (BEAKER) (test 1.83 K/ L 1.48-4.50 rslg=384) MONOCYTES ABSOLUTE COUNT (BEAKER) (test 0.45 K/ L 0.00-1.30 eqna=492) EOSINOPHILS ABSOLUTE COUNT (BEAKER) (test 0.08 K/ L 0.00-0.50 qzwv=554) BASOPHILS ABSOLUTE COUNT (BEAKER) (test 0.02 K/ L 0.00-0.20 shzw=605) Comprehensive Metabolic [id number] 18:31:00 Test Item Value Reference Range Comments Sodium (test code=NA) 139 mmol/L 135-145 Potassium (test code=K) 3.7 mmol/L 3.5-5.1 Chloride (test code=CL) 111 mmol/L 98-105 Carbon Dioxide (test 24 mmol/L 22-29 code=CO2) Anion Gap (test 4 mmol/L 7-16 code=AGAP) Glucose (test code=GLU) 66 mg/dL 70-115 Blood Urea Nitrogen 10 mg/dL 8-23 (test code=BUN) Creatinine (test 0.9 mg/dL 0.7-1.2 code=CREAT) BUN/Creatinine Ratio 11.1 (test code=BCRATIO) Calcium (test code=CA) 9.3 mg/dL 8.3-10.5 Prot Total (test 7.2 g/dL 6.4-8.3 code=TP) Albumin (test code=ALB) 3.8 g/dL 3.5-5.2 A/G Ratio (test 1.1 Ratio code=AGRATIO) Globulin (test 3.4 2.9-3.1 code=GLOB) Bili Total (test 0.4 mg/dL 0.1-0.9 code=TBIL) Alk Phos (test 92 U/L 40-129 code=APHOS) AST (test code=AST) 19 U/L 1-40 ALT (test code=ALT) 11 U/L 1-41 Estimated GFR (test >60 eGFR (estimated Glomerular code=GFR) mL/min/1.73m2 Filtration Rate) is an estimated value,calculated from the patient's serum creatinine using the MDRD equation.It is NOT the patient's actual GFR. The eGFR provides a more clinicallyuseful measure of kidney disease than serum creatinine alone.This calculation takes sex and race into account, if the informationis provided. If the race is not provided, and the patient isAfrican-Malawian, multiply by 1.212. If sex is not provided, and thepatient is female, multiply by 0.742. Results for patients <18 years ofage have not been validated by the MDRD study and should be interpretedwith caution.eGFR Result Interpretation:eGFR > or=60 is in the Normal RangeeGFR < 60 may mean kidney diseaseeGFR < 15 may mean kidney failureRanges recommended by the National Kidney Foundation,http://nkdep.ni h.gov CK [id number] 18:30:00 Test Item Value Reference Range Comments CK (test code=CK) 117 39-308 CK performed on Integra 400 CKMB (test code=CKMB) <1.0 ng/mL 0.0-4.3 CKMB% (test code=CKMBP) No Calc % Unable to calculate due to one or more values out of test measurement range. CK [id number] 18:30:00 Test Item Value Reference Range Comments CK (test code=CK) 117 U/L 39-308 Partial Thromboplastin [id number] 18:25:00 Test Item Value Reference Range Comments aPTT (test code=PTT) 18.1 seconds 22.4-33.2 Prothrombin [id number] 18:25:00 Test Item Value Reference Range Comments PT (test code=PT) 10.4 seconds 9.6-13.1 INR (test code=INR) 1.04 Ratio 0.6-1.2 Troponin [id number] 18:25:00 Test Item Value Reference Range Comments Troponin I (test code=TNI) <0.05 ng/mL 0.00-0.04 Values of <0.05 ng/ mL are considered negative. Values 0.40 ng/mL are considered indicative of myocardial injury. Values 0.05 to 0.39 ng/mL are indeterminate. CBC with [id number] 18:12:00 Test Item Value Reference Range Comments WBC (test code=WBC) 5.1 K/cumm 4.4-10.5 RBC (test code=RBC) 4.77 M/cumm 4.10-5.70 Hemoglobin (test code=HGB) 13.5 gm/dL 13.4-17.4 Hematocrit (test code=HCT) 40.8 % 38.7-52.0 MCV (test code=MCV) 85.5 fL 80-100 MCH (test code=MCH) 28.3 pg 27.0-32.5 MCHC (test code=MCHC) 33.1 % 32.0-37.5 RDW (test code=RDW) 15.5 % 11.5-14.5 Platelet Count (test code=PLTCT) 167 K/cumm 140-440 MPV (test code=MPV) 10.1 fL Diff Method (test code=DIFFM) Auto Neutrophil (test code=NEUT) 53.6 % 36-70 Lymphocyte (test code=LYMPH) 32.7 % 12-44 Monocyte (test code=MONO) 11.2 % 0-11 Eosinophil (test code=EOS) 2.5 % 0-7 Basophil (test code=BASO) 0.0 % 0-2 Neutro Abs (test code=ANEUT) 2.7 K/cumm 1.6-7.4 Lymph Abs (test code=ALYMPH) 1.7 K/cumm 0.5-4.6 [place] Abs (test code=AMONO) 0.6 K/cumm 0.0-1.2 Eos Abs (test code=AEOS) 0.13 K/cumm 0.00-0.74 Baso Abs (test code=ABASO) 0.0 K/cumm 0.00-0.21 XR-H CHEST 1 [id number] 17:33:19CHEST X-RAY 1 VIEW Location: [id number] HISTORY: Chest painTechnique:A single frontal view of the chest was obtained. [facility] September [facility], 2016 at 1340 hoursFindings:The bony structures are unremarkable. The aortic, hilar, and cardiacoutlines are normal. The lungs are clear of infiltrates or nodules. Nopneumothorax. No pleural effusions. IMPRESSION:Normal 1 view chest x-ray.SEDIMENTATION [id number] 09:57:00 Test Item Value Reference Range Comments SEDIMENTATION RATE, ERYTHROCYTE (BEAKER) (test 11 mm/HR 0-20 ipyx=078) HEMOGLOBIN [id number] 09:54:00 Test Item Value Reference Range Comments HEMOGLOBIN A1C (BEAKER) (test ykrq=172) 5.3 % 4.3-6.1 T4, [id number] 07:42:00 Test Item Value Reference Range Comments FREE T4 (BEAKER) (test enrd=454) 0.93 ng/dL 0.70-1.48 TSH/FREE T4 IF [id number] 07:08:00 Test Item Value Reference Range Comments THYROID STIMULATING HORMONE (BEAKER) (test 7.82 uIU/mL 0.35-4.94 dcbf=978) TROPONIN [id number] 06:53:00 Test Item Value Reference Range Comments TROPONIN I (BEAKER) (test fpac=625) < ng/mL 0.00-0.03 Troponin I (TnI) levels must be interpreted in the context of the presenting symptoms and the clinical findings. Elevated TnI levels indicate myocardial damage, but are not specific for ischemic heart disease. Elevated TnI levels are seen in patients with other cardiac conditions (including myocarditis and congestive heart failure), and slight TnI elevations occur in patients with other conditions, including sepsis, renal failure, acidosis, acute neurological disease, and persistent tachyarrhythmia.[id number] 06:52:00 Test Item Value Reference Range Comments PHOSPHORUS (BEAKER) (test urvo=395) 3.4 mg/dL 2.3-4.7 [id number] 06:52:00 Test Item Value Reference Range Comments MAGNESIUM (BEAKER) (test vegu=210) 2.0 mg/dL 1.6-2.6 BASIC METABOLIC [id number] 06:52:00 Test Item Value Reference Range Comments SODIUM (BEAKER) (test 142 meq/L 136-145 hqts=885) POTASSIUM (BEAKER) (test 3.6 meq/L 3.5-5.1 akbv=720) CHLORIDE (BEAKER) (test 110 meq/L 98-107 ltry=465) CO2 (BEAKER) (test 27 meq/L 22-29 ohca=008) BLOOD UREA NITROGEN 10 mg/dL 7-21 (BEAKER) (test xwkt=895) CREATININE (BEAKER) (test 0.78 mg/dL 0.57-1.25 fvnj=150) GLUCOSE RANDOM (BEAKER) 92 mg/dL 70-105 (test vtux=156) CALCIUM (BEAKER) (test 9.0 mg/dL 8.4-10.2 rgol=198) EGFR (BEAKER) (test 122 mL/min/1.73 sq m ESTIMATED GFR IS NOT lkwg=9797) ACCURATE CREATININE CLEARANCE IN PREDICTING GLOMERULAR FILTRATION RATE. ESTIMATED GFR IS NOT APPLICABLE FOR DIALYSIS PATIENTS. LIPID [id number] 06:52:00 Test Item Value Reference Range Comments TRIGLYCERIDES (BEAKER) (test tztj=589) 44 mg/dL CHOLESTEROL (BEAKER) (test aljt=102) 153 mg/dL HDL CHOLESTEROL (BEAKER) (test uvlm=457) 52 mg/dL LDL CHOLESTEROL CALCULATED (BEAKER) (test 92 mg/dL kvge=281) Triglyceride Reference Range: Low Risk <150 Borderline 150- 199 High Risk 200-499 Very High Risk >=500Cholesterol Reference Range: Low Risk <200 Borderline 200-239 High Risk > 240HDL Cholesterol Reference Range: Low Risk >=60 High Risk <40LDL Cholesterol Reference Range: Optimal <100 Near Optimal 100-129 Borderline 130-159 High 160-189 Very High >=190HEPATIC FUNCTION [id number] 06:52:00 Test Item Value Reference Range Comments TOTAL PROTEIN (BEAKER) (test caql=902) 6.5 gm/dL 6.0-8.3 ALBUMIN (BEAKER) (test bpfq=7041) 3.3 g/dL 3.5-5.0 BILIRUBIN TOTAL (BEAKER) (test tjjv=226) 0.5 mg/dL 0.2-1.2 BILIRUBIN DIRECT (BEAKER) (test gzuk=579) 0.2 mg/dL 0.1-0.5 ALKALINE PHOSPHATASE (BEAKER) (test skqj=308) 78 U/L 40-150 AST (SGOT) (BEAKER) (test enzk=710) 17 U/L 5-34 ALT (SGPT) (BEAKER) (test nfxe=009) 11 U/L 6-55 C-REACTIVE [id number] 06:52:00 Test Item Value Reference Range Comments C-REACTIVE PROTEIN (BEAKER) (test bidy=735) 0.08 mg/dL 0.00-0.50 CREATINE KINASE (CK), TOTAL AND [id number] 06:52:00 Test Item Value Reference Range Comments CREATINE KINASE TOTAL (BEAKER) (test pirm=202) 103 U/L 29-200 CREATINE KINASE-MB (BEAKER) (test rsvj=433) 0.8 ng/mL 0.0-6.6 CREATINE KINASE-MB INDEX (BEAKER) (test wukv=397) 0.8 % CK-MB Reference Range:<6.7 Normal6.7-10.0 Borderline>10.0 AbnormalCBC W/PLT COUNT & AUTO [id number] 06:23:00 Test Item Value Reference Range Comments WHITE BLOOD CELL COUNT (BEAKER) (test sjhc=550) 4.2 K/ L 3.5-10.5 RED BLOOD CELL COUNT (BEAKER) (test npsh=690) 4.33 M/ L 4.63-6.08 HEMOGLOBIN (BEAKER) (test glmm=273) 11.8 GM/DL 13.7-17.5 HEMATOCRIT (BEAKER) (test ntjy=096) 37.3 % 40.1-51.0 MEAN CORPUSCULAR VOLUME (BEAKER) (test rkyg=318) 86.1 fL 79.0-92.2 MEAN CORPUSCULAR HEMOGLOBIN (BEAKER) (test 27.3 pg 25.7-32.2 pwru=206) MEAN CORPUSCULAR HEMOGLOBIN CONC (BEAKER) (test 31.6 GM/DL 32.3-36.5 nhzy=944) RED CELL DISTRIBUTION WIDTH (BEAKER) (test 14.9 % 11.6-14.4 gdtw=896) PLATELET COUNT (BEAKER) (test xher=198) 164 K/CU MM 150-450 MEAN PLATELET VOLUME (BEAKER) (test gxmg=024) 10.0 fL 9.4-12.4 NUCLEATED RED BLOOD CELLS (BEAKER) (test 0 /100 WBC 0-0 qmdl=560) NEUTROPHILS RELATIVE PERCENT (BEAKER) (test 48 % sxjn=313) LYMPHOCYTES RELATIVE PERCENT (BEAKER) (test 38 % xged=753) MONOCYTES RELATIVE PERCENT (BEAKER) (test 11 % gnhc=899) EOSINOPHILS RELATIVE PERCENT (BEAKER) (test 2 % aagp=601) BASOPHILS RELATIVE PERCENT (BEAKER) (test 1 % nufi=089) NEUTROPHILS ABSOLUTE COUNT (BEAKER) (test 2.02 K/ L 1.78-5.38 kdpm=946) LYMPHOCYTES ABSOLUTE COUNT (BEAKER) (test 1.63 K/ L 1.32-3.57 bkdw=290) MONOCYTES ABSOLUTE COUNT (BEAKER) (test 0.46 K/ L 0.30-0.82 wqbc=050) EOSINOPHILS ABSOLUTE COUNT (BEAKER) (test 0.10 K/ L 0.04-0.54 eraq=483) BASOPHILS ABSOLUTE COUNT (BEAKER) (test 0.02 K/ L 0.01-0.08 cyxj=909) IMMATURE GRANULOCYTES-RELATIVE PERCENT (BEAKER) 0 % 0-1 (test raon=6998) RAD, CHEST, 2 [id number] 19:30:00Reason for exam:->CHEST PAINReason for exam:->GI BLEEDINGFINAL REPORT Chest 2 views 01/13/2017 7:29 PM CLINICAL HISTORY: CHEST PAINGI BLEEDING COMPARISON: 08/23/2016 FINDINGS: The lungs are clear, save for bibasilar linear atelectasis. Cardiomediastinal contours are within normal limits. The central pulmonary vasculature is not engorged. The visualized skeleton is intact.There is gaseous distention of the visualized small bowel and colon. IMPRESSION: 1. No acute cardiopulmonary abnormality.2. Suspected mild ileus. Signed: Karan Mckeon Verified Date/Time: 01/13/2017 19:30:11 Reading Location: [facility] Radiology Reading Room CREATINE KINASE (CK), TOTAL AND [id number] 19:24:00 Test Item Value Reference Range Comments CREATINE KINASE TOTAL (BEAKER) (test ffny=524) 132 U/L 29-200 CREATINE KINASE-MB (BEAKER) (test gzhy=815) 1.0 ng/mL 0.0-6.6 CREATINE KINASE-MB INDEX (BEAKER) (test ljdv=423) 0.8 % CK-MB Reference Range:<6.7 Normal6.7-10.0 Borderline>10.0 AbnormalTROPONIN [id number] 19:24:00 Test Item Value Reference Range Comments TROPONIN I (BEAKER) (test excz=307) 0.02 ng/mL 0.00-0.03 Troponin I (TnI) levels must be interpreted in the context of the presenting symptoms and the clinical findings. Elevated TnI levels indicate myocardial damage, but are not specific for ischemic heart disease. Elevated TnI levels are seen in patients with other cardiac conditions (including myocarditis and congestive heart failure), and slight TnI elevations occur in patients with other conditions, including sepsis, renal failure, acidosis, acute neurological disease, and persistent tachyarrhythmia.BASIC METABOLIC [id number] 19:17:00 Test Item Value Reference Range Comments SODIUM (BEAKER) (test 144 meq/L 136-145 zrdm=416) POTASSIUM (BEAKER) (test 3.9 meq/L 3.5-5.1 jqaf=864) CHLORIDE (BEAKER) (test 109 meq/L 98-107 deuz=402) CO2 (BEAKER) (test 27 meq/L 22-29 kyfa=290) BLOOD UREA NITROGEN 9 mg/dL 7-21 (BEAKER) (test qrmt=154) CREATININE (BEAKER) (test 0.82 mg/dL 0.57-1.25 czpm=845) GLUCOSE RANDOM (BEAKER) 69 mg/dL 70-105 (test twwf=766) CALCIUM (BEAKER) (test 9.5 mg/dL 8.4-10.2 nvno=273) EGFR (BEAKER) (test 115 mL/min/1.73 sq m ESTIMATED GFR IS NOT czxc=3989) ACCURATE CREATININE CLEARANCE IN PREDICTING GLOMERULAR FILTRATION RATE. ESTIMATED GFR IS NOT APPLICABLE FOR DIALYSIS PATIENTS. [id number] 18:57:00 Test Item Value Reference Range Comments PROTIME (BEAKER) (test wyjk=885) 12.8 seconds 11.7-14.7 INR (BEAKER) (test dlke=273) 1.0 <=5.9 PARTIAL THROMBOPLASTIN TIME (BEAKER) (test 27.3 seconds 22.5-36.0 iwvw=660) RECOMMENDED COUMADIN/WARFARIN INR THERAPY RANGESSTANDARD DOSE: 2.0 - 3.0 Includes: PROPHYLAXIS forvenous thrombosis, systemic embolization; TREATMENT for venous thrombosis and/or pulmonary embolus.HIGH RISK: Target INR is 2.5-3.5 for patients with mechanical heart valves.CBC W/PLT COUNT & AUTO [id number] 18:49:00 Test Item Value Reference Range Comments WHITE BLOOD CELL COUNT (BEAKER) (test wrjw=296) 3.8 K/ L 3.5-10.5 RED BLOOD CELL COUNT (BEAKER) (test dzje=684) 4.94 M/ L 4.63-6.08 HEMOGLOBIN (BEAKER) (test xztv=973) 13.4 GM/DL 13.7-17.5 HEMATOCRIT (BEAKER) (test kjws=018) 43.0 % 40.1-51.0 MEAN CORPUSCULAR VOLUME (BEAKER) (test toto=439) 87.0 fL 79.0-92.2 MEAN CORPUSCULAR HEMOGLOBIN (BEAKER) (test 27.1 pg 25.7-32.2 ajyy=130) MEAN CORPUSCULAR HEMOGLOBIN CONC (BEAKER) (test 31.2 GM/DL 32.3-36.5 qexa=224) RED CELL DISTRIBUTION WIDTH (BEAKER) (test 15.0 % 11.6-14.4 ejfd=568) PLATELET COUNT (BEAKER) (test hgit=321) 184 K/CU MM 150-450 MEAN PLATELET VOLUME (BEAKER) (test kwbc=067) 10.4 fL 9.4-12.4 NUCLEATED RED BLOOD CELLS (BEAKER) (test 0 /100 WBC 0-0 cdnz=864) NEUTROPHILS RELATIVE PERCENT (BEAKER) (test 49 % qyjt=433) LYMPHOCYTES RELATIVE PERCENT (BEAKER) (test 39 % irdd=883) MONOCYTES RELATIVE PERCENT (BEAKER) (test 11 % fiyi=489) EOSINOPHILS RELATIVE PERCENT (BEAKER) (test 2 % mefo=205) BASOPHILS RELATIVE PERCENT (BEAKER) (test 0 % yjut=761) NEUTROPHILS ABSOLUTE COUNT (BEAKER) (test 1.85 K/ L 1.78-5.38 wzdn=615) LYMPHOCYTES ABSOLUTE COUNT (BEAKER) (test 1.48 K/ L 1.32-3.57 yual=754) MONOCYTES ABSOLUTE COUNT (BEAKER) (test 0.40 K/ L 0.30-0.82 ozkj=670) EOSINOPHILS ABSOLUTE COUNT (BEAKER) (test 0.07 K/ L 0.04-0.54 hvnd=771) BASOPHILS ABSOLUTE COUNT (BEAKER) (test 0.01 K/ L 0.01-0.08 jfwi=511) IMMATURE GRANULOCYTES-RELATIVE PERCENT (BEAKER) 0 % 0-1 (test xzve=1893) CBC with [id number] 04:55:00 Test Item Value Reference Range Comments WBC (test code=WBC) 3.9 K/cumm 4.4-10.5 RBC (test code=RBC) 3.78 M/cumm 4.10-5.70 Hemoglobin (test code=HGB) 11.0 gm/dL 13.4-17.4 Hematocrit (test code=HCT) 34.1 % 38.7-52.0 MCV (test code=MCV) 90.2 fL 80-100 MCH (test code=MCH) 29.1 pg 27.0-32.5 MCHC (test code=MCHC) 32.3 % 32.0-37.5 RDW (test code=RDW) 14.0 % 11.5-14.5 Platelet Count (test code=PLTCT) 90 K/cumm 140-440 MPV (test code=MPV) 12.4 fL Diff Method (test code=DIFFM) Auto Neutrophil (test code=NEUT) 61.5 % 36-70 Lymphocyte (test code=LYMPH) 24.9 % 12-44 Monocyte (test code=MONO) 10.5 % 0-11 Eosinophil (test code=EOS) 2.8 % 0-7 Basophil (test code=BASO) 0.3 % 0-2 Neutro Abs (test code=ANEUT) 2.4 K/cumm 1.6-7.4 Lymph Abs (test code=ALYMPH) 1.0 K/cumm 0.5-4.6 [place] Abs (test code=AMONO) 0.4 K/cumm 0.0-1.2 Eos Abs (test code=AEOS) 0.11 K/cumm 0.00-0.74 Baso Abs (test code=ABASO) 0.0 K/cumm 0.00-0.21 CK [id number] 02:21:00 Test Item Value Reference Range Comments CK (test code=CK) 125 U/L 39-308 CK [id number] 02:21:00 Test Item Value Reference Range Comments CK (test code=CK) 125 39-308 CK performed on Integra 400 CKMB (test code=CKMB) 1.4 ng/mL 0.0-4.3 CKMB% (test code=CKMBP) 1.1 % CBC with [id number] 01:58:00 Test Item Value Reference Range Comments WBC (test code=WBC) 4.2 K/cumm 4.4-10.5 RBC (test code=RBC) 3.87 M/cumm 4.10-5.70 Hemoglobin (test code=HGB) 11.3 gm/dL 13.4-17.4 Hematocrit (test code=HCT) 34.3 % 38.7-52.0 MCV (test code=MCV) 88.6 fL 80-100 MCH (test code=MCH) 29.2 pg 27.0-32.5 MCHC (test code=MCHC) 32.9 % 32.0-37.5 RDW (test code=RDW) 14.0 % 11.5-14.5 Platelet Count (test code=PLTCT) 160 K/cumm 140-440 MPV (test code=MPV) 10.7 fL Diff Method (test code=DIFFM) Auto Neutrophil (test code=NEUT) 57.7 % 36-70 Lymphocyte (test code=LYMPH) 30.2 % 12-44 Monocyte (test code=MONO) 9.0 % 0-11 Eosinophil (test code=EOS) 2.9 % 0-7 Basophil (test code=BASO) 0.2 % 0-2 Neutro Abs (test code=ANEUT) 2.4 K/cumm 1.6-7.4 Lymph Abs (test code=ALYMPH) 1.3 K/cumm 0.5-4.6 [place] Abs (test code=AMONO) 0.4 K/cumm 0.0-1.2 Eos Abs (test code=AEOS) 0.12 K/cumm 0.00-0.74 Baso Abs (test code=ABASO) 0.0 K/cumm 0.00-0.21 Troponin [id number] 01:55:00 Test Item Value Reference Range Comments Troponin I (test code=TNI) <0.05 ng/mL 0.00-0.04 Values of <0.05 ng/ mL are considered negative. Values 0.40 ng/mL are considered indicative of myocardial injury. Values 0.05 to 0.39 ng/mL are indeterminate. Troponin [id number] 20:25:00 Test Item Value Reference Range Comments Troponin I (test code=TNI) <0.05 ng/mL 0.00-0.04 Values of <0.05 ng/ mL are considered negative. Values 0.40 ng/mL are considered indicative of myocardial injury. Values 0.05 to 0.39 ng/mL are indeterminate. CK [id number] 20:24:00 Test Item Value Reference Range Comments CK (test code=CK) 133 U/L 39-308 CK [id number] 20:24:00 Test Item Value Reference Range Comments CK (test code=CK) 133 39-308 CK performed on Integra 400 CKMB (test code=CKMB) 1.1 ng/mL 0.0-4.3 CKMB% (test code=CKMBP) 0.8 % CBC with [id number] 19:21:00 Test Item Value Reference Range Comments WBC (test code=WBC) 5.2 K/cumm 4.4-10.5 RBC (test code=RBC) 3.87 M/cumm 4.10-5.70 Hemoglobin (test code=HGB) 11.5 gm/dL 13.4-17.4 Hematocrit (test code=HCT) 34.4 % 38.7-52.0 MCV (test code=MCV) 88.9 fL 80-100 MCH (test code=MCH) 29.7 pg 27.0-32.5 MCHC (test code=MCHC) 33.4 % 32.0-37.5 RDW (test code=RDW) 13.9 % 11.5-14.5 Platelet Count (test code=PLTCT) 148 K/cumm 140-440 MPV (test code=MPV) 9.7 fL Diff Method (test code=DIFFM) Auto Neutrophil (test code=NEUT) 49.3 % 36-70 Lymphocyte (test code=LYMPH) 39.2 % 12-44 Monocyte (test code=MONO) 8.6 % 0-11 Eosinophil (test code=EOS) 2.3 % 0-7 Basophil (test code=BASO) 0.6 % 0-2 Neutro Abs (test code=ANEUT) 2.6 K/cumm 1.6-7.4 Lymph Abs (test code=ALYMPH) 2.1 K/cumm 0.5-4.6 [place] Abs (test code=AMONO) 0.5 K/cumm 0.0-1.2 Eos Abs (test code=AEOS) 0.12 K/cumm 0.00-0.74 Baso Abs (test code=ABASO) 0.0 K/cumm 0.00-0.21 Partial Thromboplastin [id number] 14:37:00 Test Item Value Reference Range Comments aPTT (test code=PTT) 23.3 seconds 22.4-33.2 Prothrombin [id number] 14:37:00 Test Item Value Reference Range Comments PT (test code=PT) 9.9 seconds 9.6-13.1 INR (test code=INR) 0.99 Ratio 0.6-1.2 Blood Type and [id number] 14:26:00 Test Item Value Reference Range Comments ABO type (test code=ABO) AB Rh Type (test code=RH) Positive Troponin [id number] 14:24:00 Test Item Value Reference Range Comments Troponin I (test code=TNI) <0.05 ng/mL 0.00-0.04 Values of <0.05 ng/ mL are considered negative. Values 0.40 ng/mL are considered indicative of myocardial injury. Values 0.05 to 0.39 ng/mL are indeterminate. CK [id number] 14:21:00 Test Item Value Reference Range Comments CK (test code=CK) 151 39-308 CK performed on Integra 400 CKMB (test code=CKMB) 1.4 ng/mL 0.0-4.3 CKMB% (test code=CKMBP) 0.9 % Comprehensive Metabolic [id number] 14:20:00 Test Item Value Reference Range Comments Sodium (test code=NA) 140 mmol/L 135-145 Potassium (test code=K) 4.0 mmol/L 3.5-5.1 Chloride (test code=CL) 104 mmol/L 98-105 Carbon Dioxide (test 28 mmol/L 22-29 code=CO2) Anion Gap (test 8 mmol/L 7-16 code=AGAP) Glucose (test code=GLU) 70 mg/dL 70-115 Blood Urea Nitrogen 6 mg/dL 8-23 (test code=BUN) Creatinine (test 0.9 mg/dL 0.7-1.2 code=CREAT) BUN/Creatinine Ratio 6.7 (test code=BCRATIO) Calcium (test code=CA) 9.2 mg/dL 8.3-10.5 Prot Total (test 7.0 g/dL 6.4-8.3 code=TP) Albumin (test code=ALB) 4.3 g/dL 3.5-5.2 A/G Ratio (test 1.6 Ratio code=AGRATIO) Globulin (test 2.7 2.9-3.1 code=GLOB) Bili Total (test 0.7 mg/dL 0.1-0.9 code=TBIL) Alk Phos (test 98 U/L 40-129 code=APHOS) AST (test code=AST) 19 U/L 1-40 ALT (test code=ALT) 11 U/L 1-41 Estimated GFR (test >60 eGFR (estimated Glomerular code=GFR) mL/min/1.73m2 Filtration Rate) is an estimated value,calculated from the patient's serum creatinine using the MDRD equation.It is NOT the patient's actual GFR. The eGFR provides a more clinicallyuseful measure of kidney disease than serum creatinine alone.This calculation takes sex and race into account, if the informationis provided. If the race is not provided, and the patient isAfrican-Mal[place]ian, multiply by 1.212. If sex is not provided, and thepatient is female, multiply by 0.742. Results for patients <18 years ofage have not been validated by the MDRD study and should be interpretedwith caution.eGFR Result Interpretation:eGFR > or=60 is in the Normal RangeeGFR < 60 may mean kidney diseaseeGFR < 15 may mean kidney failureRanges recommended by the National Kidney Foundation,http://nkdep.ni h.gov CK [id number] 14:20:00 Test Item Value Reference Range Comments CK (test code=CK) 151 U/L 39-308 CBC with [id number] 13:51:00 Test Item Value Reference Range Comments WBC (test code=WBC) 2.8 K/cumm 4.4-10.5 RBC (test code=RBC) 4.13 M/cumm 4.10-5.70 Hemoglobin (test code=HGB) 11.9 gm/dL 13.4-17.4 Hematocrit (test code=HCT) 36.8 % 38.7-52.0 MCV (test code=MCV) 89.1 fL 80-100 MCH (test code=MCH) 28.8 pg 27.0-32.5 MCHC (test code=MCHC) 32.3 % 32.0-37.5 RDW (test code=RDW) 14.2 % 11.5-14.5 Platelet Count (test code=PLTCT) 162 K/cumm 140-440 MPV (test code=MPV) 10.1 fL Diff Method (test code=DIFFM) Auto Neutrophil (test code=NEUT) 52.5 % 36-70 Lymphocyte (test code=LYMPH) 34.0 % 12-44 Monocyte (test code=MONO) 10.3 % 0-11 Eosinophil (test code=EOS) 2.8 % 0-7 Basophil (test code=BASO) 0.4 % 0-2 Neutro Abs (test code=ANEUT) 1.5 K/cumm 1.6-7.4 Lymph Abs (test code=ALYMPH) 1.0 K/cumm 0.5-4.6 [place] Abs (test code=AMONO) 0.3 K/cumm 0.0-1.2 Eos Abs (test code=AEOS) 0.08 K/cumm 0.00-0.74 Baso Abs (test code=ABASO) 0.0 K/cumm 0.00-0.21 CBC W/PLT COUNT & AUTO [id number] 15:01:00 Test Item Value Reference Range Comments WHITE BLOOD CELL COUNT (BEAKER) (test pgyl=000) 3.8 K/ L 4.0-10.0 RED BLOOD CELL COUNT (BEAKER) (test zqut=823) 4.42 M/ L 4.20-5.80 HEMOGLOBIN (BEAKER) (test jzxq=726) 12.3 GM/DL 13.0-16.8 HEMATOCRIT (BEAKER) (test ontf=729) 38.9 % 40.0-50.0 MEAN CORPUSCULAR VOLUME (BEAKER) (test kjsy=545) 88.0 fL 82.0-98.0 MEAN CORPUSCULAR HEMOGLOBIN (BEAKER) (test 27.7 pg 27.0-33.0 gjqf=509) MEAN CORPUSCULAR HEMOGLOBIN CONC (BEAKER) (test 31.5 GM/DL 32.0-36.0 tcvc=966) RED CELL DISTRIBUTION WIDTH (BEAKER) (test 14.6 % 10.3-14.2 xtqs=113) PLATELET COUNT (BEAKER) (test slos=139) 185 K/CU MM 150-430 MEAN PLATELET VOLUME (BEAKER) (test hgqu=468) 7.8 fL 6.5-10.5 NUCLEATED RED BLOOD CELLS (BEAKER) (test 0 /100 WBC 0-0 wvxe=412) (MANUAL DIFFERENTIAL)2016-08-24 15:01:00 Test Item Value Reference Range Comments NEUTROPHILS - REL (DIFF) (BEAKER) (test lkun=7838) 49 % LYMPHOCYTES - REL (DIFF) (BEAKER) (test fsce=7293) 39 % MONOCYTES - REL (DIFF) (BEAKER) (test udyu=7888) 7 % EOSINOPHILS - REL (DIFF) (BEAKER) (test lwqg=0272) 4 % BASOPHILS - REL (DIFF) (BEAKER) (test ntlv=3182) 1 % NEUTROPHILS - ABS (DIFF) (BEAKER) (test jrxm=1191) 1.86 K/ L 1.80-8.00 LYMPHOCYTES - ABS (DIFF) (BEAKER) (test pjew=5691) 1.48 K/ L 1.48-4.50 MONOCYTES - ABS (DIFF) (BEAKER) (test hsli=7591) 0.27 K/ L 0.00-1.30 EOSINOPHILS - ABS (DIFF) (BEAKER) (test buyx=4979) 0.15 K/ L 0.00-0.50 BASOPHILS - ABS (DIFF) (BEAKER) (test vfdf=0059) 0.04 K/ L 0.00-0.20 TOTAL COUNTED (BEAKER) (test iiqn=9585) 100 WBC MORPHOLOGY (BEAKER) (test ifnw=514) Normal PLT MORPHOLOGY (BEAKER) (test uaht=372) Normal RBC MORPHOLOGY (BEAKER) (test ejaa=242) Normal TROPONIN [id number] 14:45:00 Test Item Value Reference Range Comments TROPONIN I (BEAKER) (test syxs=392) < ng/mL 0.00-0.15 Troponin I (TnI) levels must be interpreted in the context of the presenting symptoms and the clinical findings. Elevated TnI levels indicate myocardial damage, but are not specific for ischemic heart disease. Elevated TnI levels are seen in patients with other cardiac conditions (including myocarditis and congestive heart failure), and slight TnI elevations occur in patients with other conditions, including sepsis, renal failure, acidosis, acute neurological disease, and persistent tachyarrhythmia.CREATINE KINASE (CK), TOTAL AND [id number] 14:44:00 Test Item Value Reference Range Comments CREATINE KINASE TOTAL (BEAKER) (test fsvs=277) 74 U/L 40-250 CREATINE KINASE-MB (BEAKER) (test cpuf=287) 0.7 ng/mL 0.0-4.9 CREATINE KINASE-MB INDEX (BEAKER) (test dfca=143) 0.9 % CK-MB Reference Range:<5 Normal5-10 Borderline>10 AbnormalCBC W/PLT COUNT & AUTO [id number] 08:06:00 Test Item Value Reference Range Comments WHITE BLOOD CELL COUNT (BEAKER) (test ysze=929) 3.4 K/ L 4.0-10.0 RED BLOOD CELL COUNT (BEAKER) (test qzwn=737) 4.27 M/ L 4.20-5.80 HEMOGLOBIN (BEAKER) (test jzcm=292) 11.9 GM/DL 13.0-16.8 HEMATOCRIT (BEAKER) (test stnb=386) 37.3 % 40.0-50.0 MEAN CORPUSCULAR VOLUME (BEAKER) (test balr=082) 87.5 fL 82.0-98.0 MEAN CORPUSCULAR HEMOGLOBIN (BEAKER) (test 28.0 pg 27.0-33.0 yhvu=529) MEAN CORPUSCULAR HEMOGLOBIN CONC (BEAKER) (test 32.0 GM/DL 32.0-36.0 hmrx=186) RED CELL DISTRIBUTION WIDTH (BEAKER) (test 14.6 % 10.3-14.2 vtkq=668) PLATELET COUNT (BEAKER) (test vtrj=358) 171 K/CU MM 150-430 MEAN PLATELET VOLUME (BEAKER) (test qann=849) 7.4 fL 6.5-10.5 NUCLEATED RED BLOOD CELLS (BEAKER) (test 0 /100 WBC 0-0 apsy=202) (MANUAL DIFFERENTIAL)2016-08-24 08:06:00 Test Item Value Reference Range Comments NEUTROPHILS - REL (DIFF) (BEAKER) (test tmgr=3456) 59 % LYMPHOCYTES - REL (DIFF) (BEAKER) (test nhuv=9866) 34 % MONOCYTES - REL (DIFF) (BEAKER) (test cisl=7726) 5 % EOSINOPHILS - REL (DIFF) (BEAKER) (test rukf=5452) 2 % NEUTROPHILS - ABS (DIFF) (BEAKER) (test sntj=8805) 2.01 K/ L 1.80-8.00 LYMPHOCYTES - ABS (DIFF) (BEAKER) (test diqr=8536) 1.16 K/ L 1.48-4.50 MONOCYTES - ABS (DIFF) (BEAKER) (test elab=7065) 0.17 K/ L 0.00-1.30 EOSINOPHILS - ABS (DIFF) (BEAKER) (test ipfz=0798) 0.07 K/ L 0.00-0.50 TOTAL COUNTED (BEAKER) (test irwk=2149) 100 WBC MORPHOLOGY (BEAKER) (test vecm=486) Normal PLT MORPHOLOGY (BEAKER) (test sccl=136) Normal ANISOCYTOSIS (BEAKER) (test nvpk=596) 1+ few CREATINE KINASE (CK), TOTAL AND [id number] 06:48:00 Test Item Value Reference Range Comments CREATINE KINASE TOTAL (BEAKER) (test cisq=772) 73 U/L 40-250 CREATINE KINASE-MB (BEAKER) (test kkqp=714) 0.7 ng/mL 0.0-4.9 CREATINE KINASE-MB INDEX (BEAKER) (test mylo=010) 1.0 % CK-MB Reference Range:<5 Normal5-10 Borderline>10 GftlatugN5S x2Q6H x2Q6H x2Q6H q0GPBJKLOL [id number] 06:48:00 Test Item Value Reference Range Comments TROPONIN I (BEAKER) (test ants=048) < ng/mL 0.00-0.15 Troponin I (TnI) levels must be interpreted in the context of the presenting symptoms and the clinical findings. Elevated TnI levels indicate myocardial damage, but are not specific for ischemic heart disease. Elevated TnI levels are seen in patients with other cardiac conditions (including myocarditis and congestive heart failure), and slight TnI elevations occur in patients with other conditions, including sepsis, renal failure, acidosis, acute neurological disease, and persistent tachyarrhythmia.Q6H x2Q6H i7DWGEE METABOLIC [id number] 06:37:00 Test Item Value Reference Range Comments SODIUM (BEAKER) (test 143 meq/L 135-148 szrr=609) POTASSIUM (BEAKER) (test 4.0 meq/L 3.6-5.5 kxzg=058) CHLORIDE (BEAKER) (test 109 meq/L 98-106 qbmv=248) CO2 (BEAKER) (test 26 meq/L 20-29 dveu=098) BLOOD UREA NITROGEN 9 mg/dL 10-26 (BEAKER) (test ckzi=134) CREATININE (BEAKER) (test 0.80 mg/dL 0.50-1.20 zkox=699) GLUCOSE RANDOM (BEAKER) 70 mg/dL 70-110 (test kpbi=188) CALCIUM (BEAKER) (test 8.7 mg/dL 8.5-10.5 zwyo=550) EGFR (BEAKER) (test 118 mL/min/1.73 sq m ESTIMATED GFR IS NOT tczh=1679) ACCURATE CREATININE CLEARANCE IN PREDICTING GLOMERULAR FILTRATION RATE. ESTIMATED GFR IS NOT APPLICABLE FOR DIALYSIS PATIENTS. Q6H x2Q6H j1KQPATRS FUNCTION [id number] 18:50:00 Test Item Value Reference Range Comments TOTAL PROTEIN (BEAKER) (test njqy=647) 6.9 gm/dL 6.0-8.5 ALBUMIN (BEAKER) (test ijdi=6376) 3.7 g/dL 3.5-5.0 BILIRUBIN TOTAL (BEAKER) (test nkgj=769) 0.6 mg/dL 0.1-1.2 BILIRUBIN DIRECT (BEAKER) (test awde=502) 0.3 mg/dL 0.0-0.4 ALKALINE PHOSPHATASE (BEAKER) (test buwq=445) 88 U/L 30-115 AST (SGOT) (BEAKER) (test sfkb=508) 18 U/L 5-40 ALT (SGPT) (BEAKER) (test wdbk=703) 14 U/L 5-50 TROPONIN [id number] 18:25:00 Test Item Value Reference Range Comments TROPONIN I (BEAKER) (test lers=672) < ng/mL 0.00-0.15 Troponin I (TnI) levels must be interpreted in the context of the presenting symptoms and the clinical findings. Elevated TnI levels indicate myocardial damage, but are not specific for ischemic heart disease. Elevated TnI levels are seen in patients with other cardiac conditions (including myocarditis and congestive heart failure), and slight TnI elevations occur in patients with other conditions, including sepsis, renal failure, acidosis, acute neurological disease, and persistent tachyarrhythmia.CREATINE KINASE (CK), TOTAL AND [id number] 18:24:00 Test Item Value Reference Range Comments CREATINE KINASE TOTAL (BEAKER) (test gwth=651) 82 U/L 40-250 CREATINE KINASE-MB (BEAKER) (test dnnu=337) 0.7 ng/mL 0.0-4.9 CREATINE KINASE-MB INDEX (BEAKER) (test fpbn=437) 0.9 % CK-MB Reference Range:<5 Normal5-10 Borderline>10 AbnormalB-TYPE NATRIURETIC FACTOR (BNP)2016-08-23 18:23:00 Test Item Value Reference Range Comments B-TYPE NATRIURETIC PEPTIDE (BEAKER) (test ljzg=968) 33 pg/mL 0-100 BASIC METABOLIC [id number] 18:15:00 Test Item Value Reference Range Comments SODIUM (BEAKER) (test 143 meq/L 135-148 hdch=842) POTASSIUM (BEAKER) (test 3.8 meq/L 3.6-5.5 mnnx=530) CHLORIDE (BEAKER) (test 111 meq/L 98-106 jejn=539) CO2 (BEAKER) (test 26 meq/L 20-29 wcgq=525) BLOOD UREA NITROGEN 8 mg/dL 10-26 (BEAKER) (test tsmp=975) CREATININE (BEAKER) (test 0.90 mg/dL 0.50-1.20 wxnu=835) GLUCOSE RANDOM (BEAKER) 84 mg/dL 70-110 (test ovle=175) CALCIUM (BEAKER) (test 8.7 mg/dL 8.5-10.5 tpfu=524) EGFR (BEAKER) (test 103 mL/min/1.73 sq m ESTIMATED GFR IS NOT winy=7958) ACCURATE CREATININE CLEARANCE IN PREDICTING GLOMERULAR FILTRATION RATE. ESTIMATED GFR IS NOT APPLICABLE FOR DIALYSIS PATIENTS. [id number] 18:11:00 Test Item Value Reference Range Comments PROTIME (BEAKER) (test lklg=620) 10.9 seconds 9.3-12.0 INR (BEAKER) (test sjrq=500) 1.0 <=5.9 PARTIAL THROMBOPLASTIN TIME (BEAKER) (test 23.4 seconds 23.0-35.0 donz=054) RECOMMENDED COUMADIN/WARFARIN INR THERAPY RANGESSTANDARD DOSE: 2.0 - 3.0 Includes: PROPHYLAXIS forvenous thrombosis, systemic embolization; TREATMENT for venous thrombosis and/or pulmonary embolus.HIGH RISK: Target INR is 2.5-3.5 for patients with mechanical heart valves.[id number] 18:09:00 Test Item Value Reference Range Comments MAGNESIUM (BEAKER) (test mvrt=529) 2.4 mg/dL 1.5-3.0 CBC W/PLT COUNT & AUTO [id number] 17:29:00 Test Item Value Reference Range Comments WHITE BLOOD CELL COUNT (BEAKER) (test jmmw=408) 3.4 K/ L 4.0-10.0 RED BLOOD CELL COUNT (BEAKER) (test lttz=515) 4.55 M/ L 4.20-5.80 HEMOGLOBIN (BEAKER) (test jcrg=089) 13.0 GM/DL 13.0-16.8 HEMATOCRIT (BEAKER) (test omzl=652) 40.4 % 40.0-50.0 MEAN CORPUSCULAR VOLUME (BEAKER) (test ovxg=670) 88.8 fL 82.0-98.0 MEAN CORPUSCULAR HEMOGLOBIN (BEAKER) (test 28.5 pg 27.0-33.0 dhfj=053) MEAN CORPUSCULAR HEMOGLOBIN CONC (BEAKER) (test 32.1 GM/DL 32.0-36.0 wmpt=006) RED CELL DISTRIBUTION WIDTH (BEAKER) (test 15.3 % 10.3-14.2 xkgh=927) PLATELET COUNT (BEAKER) (test avdz=035) 194 K/CU MM 150-430 MEAN PLATELET VOLUME (BEAKER) (test uoue=924) 7.9 fL 6.5-10.5 NUCLEATED RED BLOOD CELLS (BEAKER) (test 0 /100 WBC 0-0 iyoc=780) NEUTROPHILS RELATIVE PERCENT (BEAKER) (test 42 % xxpo=296) LYMPHOCYTES RELATIVE PERCENT (BEAKER) (test 41 % qkml=289) MONOCYTES RELATIVE PERCENT (BEAKER) (test 14 % rexn=098) EOSINOPHILS RELATIVE PERCENT (BEAKER) (test 4 % zsda=273) BASOPHILS RELATIVE PERCENT (BEAKER) (test 0 % wboo=298) NEUTROPHILS ABSOLUTE COUNT (BEAKER) (test 1.40 K/ L 1.80-8.00 qkns=613) LYMPHOCYTES ABSOLUTE COUNT (BEAKER) (test 1.40 K/ L 1.48-4.50 uruo=113) MONOCYTES ABSOLUTE COUNT (BEAKER) (test 0.50 K/ L 0.00-1.30 iezv=635) EOSINOPHILS ABSOLUTE COUNT (BEAKER) (test 0.10 K/ L 0.00-0.50 jxvf=010) BASOPHILS ABSOLUTE COUNT (BEAKER) (test 0.00 K/ L 0.00-0.20 iqoc=113) TISSUE [id number] 13:48:00Surgical Pathology Report Case: [id number] Authorizing Provider: Shay Sethi MD Ordering Provider: Shay Sethi MD OrderingLocation: [facility] Collected: [id number] Pathologist: Jose Hendricks MD Received: 06/20/2016 1300 Specimen: Antrum, biopsy A. STOMACH, ANTRUM, BIOPSY:- ANTRAL MUCOSA WITH MILD CHRONIC INACTIVE GASTRITIS - NEGATIVE FOR INTESTINAL METAPLASIA, DYSPLASIA, AND MALIGNANCY - NEGATIVE FOR H. PYLORI ON WARTHIN-STARRY SPECIAL STAIN Signing PathologistDirect Phone Line: [phone] pathology reports were concurrently reviewed.[id number], [id number] bleedThe paperwork, container, and cassette are all labeled [id number].The specimen is received in formalin in a single container labeled with the patient' s name (MCDONALD) and medical record number.A. The specimen labeled "antrum" consists of a 0.5 x 0.4 x 0.2 cm fragment of cummings-pink tissue, which is entirely submitted in a single cassette labeled A1.Microscopic examination is performed and is incorporated in the diagnostic line.[facility], Department of Pathology, [address] [place] [address], [place] [address], [facility], Department of Pathology, [address] [place] [address], [facility], [facility] of [facility], [address] [place] [address], [place] [address] ,
[2017-07-28] MEDS ORDERED: MAGNE/ALUM HYDROXD 30 ML UCUP ONE (07:44)
[2017-07-28] MEDS ORDERED: ONDANSETRON 4 MG/2 ML VIAL ONE (07:44)
[2017-07-28] MEDS ORDERED: LIDOCAINE VISCOUS 2% SOLN 15 ML UDC ONE (07:45)
[2017-07-28] MEDS ORDERED: PANTOPRAZOLE 40 MG INJ ONE (07:45)
--- NOTE | 2017-07-28 07:55 | EKG ---
Test Date: 2017-07-28 Test Time: 06:59:43 [employer]: COLETT[place] MEASUREMENT RESULTS: Intervals: Rate: 66 CO: 166 QRSD: 122 QT: 422 QTc: 442 [place]: P: 49 CO: 166 QRS: 101 T: 41 INTERPRETIVE STATEMENTS: Normal sinus rhythm Right bundle branch block Abnormal ECG Compared to ECG 10/29/2016 07:06:40 Right bundle-branch block now present Atrial premature complex(es) no longer present T-wave abnormality no longer present Electronically Signed On 07-28-17 07:54:46 CDT by Isaiah Kirkland
[2017-07-28 09:05] LABS: Absolute Lymphocytes (CBC) 1.1 K/uL (0.7-4.9); Absolute Monocytes 0.5 K/uL (0.1-1.3); Absolute Neutrophil 1.8 K/uL (1.8-8.0); Basophils % 0.8 % (0-1.3); Eosinophils % 3.7 % (0-4.4); Hematocrit 41.6 % (39.6-49.0); Lymphocytes % 32.1 % (15.3-44.8); MCH 27.1 pg (27.0-35.0); MCV 84.8 fL (80-100); MPV 8.3 fL (7.6-11.3); Monocytes % 13.2 % (3.3-12.3); RBC Red Blood Cell Count 4.91 M/uL (4.33-5.43)
[2017-07-28 09:14] LABS: Protime INR 0.9
--- NOTE | 2017-07-28 09:15 | RAD REPORT ---
EXAM DESCRIPTION: RAD - Chest Single View - 07/28/2017 8:23 am CLINICAL HISTORY: Chest pain, hematemesis COMPARISON: October 2016 TECHNIQUE: AP portable chest image was obtained 0817 hours . FINDINGS: Lung volumes are relatively low. Body habitus and underpenetrated technique accentuate kristel g markings. No focal mass or consolidation. Failure or volume overload are not suspected. Trachea is midline. Heart and vasculature are normal. No measurable pleural effusion and no pneumotho rax. No gross bony abnormality seen. No acute aortic findings suspected. IMPRESSION: No acute cardiopulmonary process. Lung markings are accentuated by a slightly shallow inspiration and under penetrated film technique. Lung markings are not substantially different from comparison.
[2017-07-28] MEDS ORDERED: MEPERIDINE HCL 25 MG/0.5 ML ONE ×3 (09:16→11:59)
[2017-07-28 09:23] LABS: Bicarbonate 29 mEq/L (21-31); Glucose Level 84 mg/dL (65-120); Potassium 4.2 mEq/L (3.6-5.0); Sodium Level 140 mEq/L (135-145)
[2017-07-28 09:29] LABS: ALT/SGPT 13 IU/L (10-60); AST/SGOT 21 IU/L (10-42); Albumin 4.5 g/dL (3.2-5.5); Alkaline Phosphatase 99 IU/L (42-121); BUN Blood Urea Nitrogen 13 mg/dL (6-20); Bilirubin Direct < 0.1 mg/dL (0-0.2); Bilirubin Total 0.8 mg/dL (0.3-1.2); Creatine Phosphokinase 107 IU/L (22-269); Glomerular Filtration Rate > 90 mL/min (=/>90); Magnesium 2.5 mg/dL (1.8-2.5); Protein, Total 8.5 g/dL (6.0-8.3)
[2017-07-28 09:33] LABS: CKMB Creatine Kinase MB 1.2 ng/ml (0.3-4.0)
--- NOTE | 2017-07-28 09:56 | EDPHYS ---
Physician Documentation [facility] Name: Mei Pandey Age: 61 yrs Sex: Male : 1955 Arrival Date: 07/28/2017 Time: 06:49 Bed 15 Private MD: ED Physician Bridger Juarez HPI: 07/28 07:27 This 61 yrs old Black Male presents to ER via Ambulatory with complaints of Chest Pain rn > 30 y/o, Vomiting blood. 07:27 The patient or guardian reports chest pain that is located primarily in the substernal rn area. Onset: this morning. The pain radiates to the left arm. Associated signs and symptoms: Pertinent positives: nausea, vomiting, Pertinent negatives: abdominal pain, cough, syncope. The chest pain is described as aching. Duration: The patient or guardian reports multiple episodes, that are intermittent. Severity of pain: At its worst the pain was moderate in the emergency department the pain is unchanged. The patient has experienced similar episodes in the past. Reports woke up with chest pain a couple of hours ago, 3 episodes of dark emesis, states has happened before, this feels like previous WI in past, his 2nd one, on xarelto for blood clots, has IVC filter in place, reports never found source of vomiting blood in past. . Historical: - Allergies: 07:08 Morphine; ea - Home Meds: 07:09 Ambien 10 mg Oral tab 1 tab once daily [Active]; Lipitor 40 mg Oral tab 1 tab once ea daily [Active]; Iron CR Oral [Active]; Nadeau 10-325 mg Oral tab 1 tab every 4 hours [Active]; levothyroxine 50 mcg tab 1 tab once daily [Active]; - PMHx: 07:08 Myocardial infarction; CVA; ea - PSHx: 07:08 gastric sleeve; IVC filter; Heart stents; ea - Immunization history:: Adult Immunizations up to date. - Social history:: Smoking status: Patient/guardian denies using tobacco, Patient uses alcohol, occasionally. - Family history:: not pertinent. - Hospitalizations: : No recent hospitalization is reported. ROS: 07:27 Constitutional: Negative for fever, chills, and weight loss, Eyes: Negative for injury, rn pain, redness, and discharge, Cardiovascular: Negative for palpitations, and edema, Respiratory: Negative for shortness of breath, cough, wheezing, and pleuritic chest pain, Abdomen/GI: Negative for abdominal pain, diarrhea, and constipation, Back: Negative for injury and pain, MS/Extremity: Negative for injury and deformity, Skin: Negative for injury, rash, and discoloration, Neuro: Negative for headache, weakness, numbness, tingling, and seizure. Exam: 07:27 Constitutional: This is a well developed, well nourished patient who is awake, alert, rn and in no acute distress. Head/Face: Normocephalic, atraumatic. Eyes: Pupils equal round and reactive to light, extra-ocular motions intact. Lids and lashes normal. Conjunctiva and sclera are non-icteric and not injected. Cornea within normal limits. Periorbital areas with no swelling, redness, or edema. Cardiovascular: Regular rate and rhythm with a normal S1 and S2. No gallops, murmurs, or rubs. Normal PMI, no JVD. No pulse deficits. Respiratory: Lungs have equal breath sounds bilaterally, clear to auscultation and percussion. No rales, rhonchi or wheezes noted. No increased work of breathing, no retractions or nasal flaring. Abdomen/GI: Soft, non-tender, with normal bowel sounds. No distension or tympany. No guarding or rebound. No evidence of tenderness throughout. MS/ Extremity: Pulses equal, no cyanosis. Neurovascular intact. Full, normal range of motion. Equal circumference. Neuro: Awake and alert, GCS 15, oriented to person, place, time, and situation. Cranial nerves II-XII grossly intact. Motor strength 5/5 in all extremities. Sensory grossly intact. Cerebellar exam normal. Normal gait. Vital Signs: 07:00 BP 118 / 74; Pulse 64; Resp 19; Temp 98.7(O); Pulse Ox 99% on R/A; Weight 94.35 kg; ea Height 5 ft. 8 in. (172.72 cm); Pain 9/10; 08:00 BP 122 / 78; Pulse 71; Resp 18; Pulse Ox 98% on R/A; Pain 9/10; ph 09:12 BP 128 / 79; Pulse 71; Resp 18; Pulse Ox 99% on R/A; ph 10:39 BP 97 / 69; Pulse 60; Resp 11; Pulse Ox 100% on R/A; Pain 9/10; mh5 11:08 BP 106 / 67; Pulse 58; Resp 15; Pulse Ox 99% on R/A; mh5 12:22 BP 118 / 78; Pulse 59; Resp 16; Temp 98.1; Pulse Ox 99% on R/A; ph 13:20 BP 114 / 76; Pulse 59; Resp 18; Temp 98.1; Pulse Ox 99% on R/A; ph 07:00 Body Mass Index 31.63 (94.35 kg, 172.72 cm) ea Procedures: 08:47 Peripheral line: by aseptic technique a peripheral line was placed in the right rn antecubital vein, using u/s guidance, single stick, good blood flow and return.. MDM: 07:04 Patient medically screened. rn 09:53 Differential diagnosis: acute myocardial infarction, acute pericarditis, coronary rn artery disease chest wall pain, costochondritis, gastritis, gastroesophageal reflux disease (GERD), pleurisy, pneumothorax, stable angina. The patient was not given aspirin in the Emergency Department. Data reviewed: vital signs, nurses notes, and as a result, I will admit patient. Counseling: I had a detailed discussion with the patient and/or guardian regarding: the historical points, exam findings, and any diagnostic results supporting the discharge/admit diagnosis, lab results, radiology results, the need for further work-up and treatment in the hospital. Response to treatment: the patient's symptoms have mildly improved after treatment, and as a result, I will admit patient. Admission orders: after a detailed discussion of the patient's condition and case, the admit orders are written by me. ED course: Pt uneasy about going home, states feels similar to his previous WI, stable h/h, no longer vomiting, still having chest pain, no anticoagulation given in ER 2/2 hematemesis, will observe overnight with cardiac eval. . 07/28 07:22 Order name: Basic Metabolic Panel rn 07/28 07:22 Order name: BNP rn 07/28 07:22 Order name: CBC with Diff rn 07/28 07:22 Order name: Ckmb rn 07/28 07:22 Order name: CPK rn 07/28 07:22 Order name: LFT's rn 07/28 07:22 Order name: Magnesium rn 07/28 07:22 Order name: PT-INR rn 07/28 07:22 Order name: Ptt, Activated rn 07/28 07:22 Order name: Troponin (emerg Dept Use Only) rn 07/28 07:22 Order name: Type And Screen rn 07/28 09:23 Order name: Protime (+INR); Complete Time: 09:24 EDMS 07/28 09:23 Order name: PTT, Activated Partial Thromb; Complete Time: 09:24 EDMS 07/28 09:23 Order name: Basic Metabolic Panel; Complete Time: 09:45 EDMS 07/28 07:22 Order name: XRAY Chest (1 view) rn 07/28 09:16 Order name: RAD; Complete Time: 09:24 EDMS 07/28 09:23 Order name: CBC with Automated Diff; Complete Time: 09:24 EDMS 07/28 09:29 Order name: Troponin (Emerg Dept Use Only); Complete Time: 09:45 EDMS 07/28 09:32 Order name: BNP B-Type Natriuretic Peptide; Complete Time: 09:45 EDMS 07/28 09:36 Order name: Liver (Hepatic) Function; Complete Time: 09:45 EDMS 07/28 09:36 Order name: Creatine Phosphokinase; Complete Time: 09:45 EDMS 07/28 09:36 Order name: CKMB Creatine Kinase MB; Complete Time: 09:45 EDMS 07/28 09:36 Order name: Magnesium; Complete Time: 09:45 EDMS 07/28 09:57 Order name: Type and Screen EDMS 07/28 10:23 Order name: Type and Screen Tube method EDMS 07/28 07:22 Order name: EKG; Complete Time: 07:23 rn 07/28 07:22 Order name: Cardiac monitoring; Complete Time: 07:41 rn 07/28 07:22 Order name: EKG - Nurse/Tech; Complete Time: 07:41 rn 07/28 07:22 Order name: IV Saline Lock; Complete Time: 09:07 rn 07/28 07:22 Order name: Labs collected and sent; Complete Time: 09:07 rn 07/28 07:22 Order name: O2 Per Protocol; Complete Time: 07:41 rn 07/28 07:22 Order name: O2 Sat Monitoring; Complete Time: 07:41 rn Administered Medications: 07:30 Drug: GI Cocktail without - (Maalox Suspension 30 ml, Lidocaine Liquid 2 % 15 hb ml) Route: PO; 19:18 Follow up: Response: No adverse reaction ph 09:06 Drug: Zofran 4 mg Route: IVP; Site: right antecubital; ph 10:00 Follow up: Response: No adverse reaction ph 09:06 Drug: ProTONIX 40 mg Route: IVP; Site: right antecubital; ph 10:00 Follow up: Response: No adverse reaction ph 09:06 Drug: Demerol 25 mg Route: IVP; Site: right antecubital; ph 09:25 Follow up: Response: No adverse reaction; Pain is unchanged, physician notified ph 09:43 Drug: Demerol 25 mg Route: IVP; Site: right antecubital; ph 10:35 Follow up: Response: No adverse reaction; Pain is unchanged, physician notified ph 11:40 Drug: Demerol 25 mg Route: IVP; Site: right antecubital; ph 12:00 Follow up: Response: No adverse reaction; Pain is unchanged, physician notified ph 13:15 Drug: ProTONIX 8 mg/hr Route: IV; Rate: 25 ml/hr; Site: left forearm; ph 13:25 Follow up: Response: No adverse reaction; IV Status: Infusion continued upon admission ph Disposition: 07/28/17 09:55 Hospitalization ordered by Melina Vanegas for Observation. Preliminary diagnosis are Chest pain, unspecified, Hematemesis. - Bed requested for Telemetry/MedSurg (observation). - Status is Observation. ph - Condition is Stable. - Problem is new. - Symptoms have improved. UTI on Admission? No Signatures: Dispatcher [employer] EDNichole Sinclair Roman, MD MD rn Hall, Patricia, RN RN ph Baxter, Heather, RN RN hb Antunez, Elena, RN RN ea
--- NOTE | 2017-07-28 09:56 | ER ---
Nurse's Notes [facility] Name: Mei Pandey Age: 61 yrs Sex: Male : 1955 Arrival Date: 07/28/2017 Time: 06:49 Bed 15 Private MD: Diagnosis: Chest pain, unspecified;Hematemesis Presentation: 07/28 07:00 Presenting complaint: Patient states: Started having chest pain and bloody emesis at 5 ea AM, reports SOB with exertion. Reports similar episode last year. Transition of care: patient was not received from another setting of care. Onset of symptoms was July 28, 2017. Care prior to arrival: None. 07:00 Method Of Arrival: Ambulatory ea 07:00 Acuity: [place] 2 ea Triage Assessment: 07:00 General: Appears uncomfortable, Behavior is calm, cooperative, appropriate for age. ea Pain: Complains of pain in chest Pain currently is 9 out of 10 on a pain scale. Neuro: Level of Consciousness is awake, alert, obeys commands, Oriented to person, place, time, situation. Cardiovascular: Patient's skin is warm and dry. Respiratory: Airway is patent Respiratory effort is even, unlabored, Respiratory pattern is regular, symmetrical. Derm: Skin is dry, Skin is normal, Skin temperature is warm. Historical: - Allergies: 07:08 Morphine; ea - Home Meds: 07:09 Ambien 10 mg Oral tab 1 tab once daily [Active]; Lipitor 40 mg Oral tab 1 tab once ea daily [Active]; Iron CR Oral [Active]; [place] 10-325 mg Oral tab 1 tab every 4 hours [Active]; levothyroxine 50 mcg tab 1 tab once daily [Active]; - PMHx: 07:08 Myocardial infarction; CVA; ea - PSHx: 07:08 gastric sleeve; IVC filter; Heart stents; ea - Immunization history:: Adult Immunizations up to date. - Social history:: Smoking status: Patient/guardian denies using tobacco, Patient uses alcohol, occasionally. - Family history:: not pertinent. - Hospitalizations: : No recent hospitalization is reported. Screenin:12 Abuse screen: Denies threats or abuse. Nutritional screening: No deficits noted. ea Tuberculosis screening: No symptoms or risk factors identified. Fall Risk None identified. Assessment: 07:20 General: Appears in no apparent distress. comfortable, well groomed, Behavior is calm, ph cooperative, appropriate for age, Denies fever, feeling ill. 07:20 Pain: Complains of pain in mid-sternal area Pain radiates to left arm. Neuro: Level of ph Consciousness is awake, alert, obeys commands, Oriented to person, place, time, situation, Denies dizziness, headache. Cardiovascular: Reports chest pain, nausea, shortness of breath, vomiting, Capillary refill < 3 seconds in bilateral fingers Patient's skin is warm and dry. Chest pain is located in substernal area radiates to left arm(s). Respiratory: Airway is patent Respiratory effort is even, unlabored, Respiratory pattern is regular, symmetrical, Denies cough. GI: Reports 1 episode of dark, red, vomitting Patient currently denies abdominal pain. Derm: Skin is intact, is healthy with good turgor, Skin is pink, warm \T\ dry. Musculoskeletal: Circulation, motion, and sensation intact. Range of motion: intact in all extremities. 08:30 Reassessment: Patient appears in no apparent distress at this time. Patient and/or ph family updated on plan of care and expected duration. Pain level reassessed. Patient is alert, oriented x 3, equal unlabored respirations, skin warm/dry/pink. Pt rates pain 9/10 at this time, denies nausea, unable to obtain peripheral IV access, awaiting ERP for US guided IV insertion. 09:00 Reassessment: Patient appears in no apparent distress at this time. Patient and/or ph family updated on plan of care and expected duration. Pain level reassessed. Patient is alert, oriented x 3, equal unlabored respirations, skin warm/dry/pink. US IV attempt successful, pain medication administered per provider order, awaiting lab results, VSS, will continue to monitor. 09:43 Reassessment: Patient appears in no apparent distress at this time. Patient and/or ph family updated on plan of care and expected duration. Pain level reassessed. Patient is alert, oriented x 3, equal unlabored respirations, skin warm/dry/pink. Pt reports pain has not improved, continues to rate 9/10, ERP notified, see MAR. 10:45 Reassessment: Patient appears in no apparent distress at this time. Patient and/or ph family updated on plan of care and expected duration. Pain level reassessed. Patient is alert, oriented x 3, equal unlabored respirations, skin warm/dry/pink. Pt sitting up in bed watching TV, continues to c/o pain 9/10, ERP notified, see JUL. 11:45 Reassessment: Patient appears in no apparent distress at this time. Patient and/or ph family updated on plan of care and expected duration. Pain level reassessed. Patient is alert, oriented x 3, equal unlabored respirations, skin warm/dry/pink. Dr Vanegas at bedside to speak w/ pt, IV d/c r/t infiltration, awaiting room assignment. 13:00 Reassessment: Patient appears in no apparent distress at this time. Patient and/or ph family updated on plan of care and expected duration. Pain level reassessed. Patient is alert, oriented x 3, equal unlabored respirations, skin warm/dry/pink. Report called to Lizzeth EASON, pt to be taj=nunu to inpatient room after US guided IV insertion. Vital Signs: 07:00 BP 118 / 74; Pulse 64; Resp 19; Temp 98.7(O); Pulse Ox 99% on R/A; Weight 94.35 kg; ea Height 5 ft. 8 in. (172.72 cm); Pain 9/10; 08:00 BP 122 / 78; Pulse 71; Resp 18; Pulse Ox 98% on R/A; Pain 9/10; ph 09:12 BP 128 / 79; Pulse 71; Resp 18; Pulse Ox 99% on R/A; ph 10:39 BP 97 / 69; Pulse 60; Resp 11; Pulse Ox 100% on R/A; Pain 9/10; mh5 11:08 BP 106 / 67; Pulse 58; Resp 15; Pulse Ox 99% on R/A; mh5 12:22 BP 118 / 78; Pulse 59; Resp 16; Temp 98.1; Pulse Ox 99% on R/A; ph 13:20 BP 114 / 76; Pulse 59; Resp 18; Temp 98.1; Pulse Ox 99% on R/A; ph 07:00 Body Mass Index 31.63 (94.35 kg, 172.72 cm) ea ED Course: 06:49 Patient arrived in ED. am2 07:00 Patient has correct armband on for positive identification. Placed in gown. Bed in low ea position. Call light in reach. bus monitor on. Pulse ox on. NIBP on. 07:00 Arm band placed on right wrist. ea 07:04 Bridger Juarez MD is Attending Physician. rn 07:07 Triage completed. ea 07:14 Patient maintains SpO2 saturation greater than 95% on room air. ea 07:17 Report given to DAMIÁN EASON. jd3 07:25 Missed attempt(s): 22 gauge in left antecubital area. Bleeding controlled, band aid ph applied, catheter tip intact. 07:35 Sara Pandey RN is Primary Nurse. ph 07:47 EKG done, by ED staff. vh 08:20 X-ray completed. Portable x-ray completed in exam room. Patient tolerated procedure ml well. 08:50 Inserted saline lock: 20 gauge in right antecubital area, using aseptic technique. ph Blood collected. 09:55 Melina Vanegas MD is Hospitalizing Provider. rn 13:25 No provider procedures requiring assistance completed. Patient admitted, IV remains in ph place. Administered Medications: 07:30 Drug: GI Cocktail without - (Maalox Suspension 30 ml, Lidocaine Liquid 2 % 15 hb ml) Route: PO; 19:18 Follow up: Response: No adverse reaction ph 09:06 Drug: Zofran 4 mg Route: IVP; Site: right antecubital; ph 10:00 Follow up: Response: No adverse reaction ph 09:06 Drug: ProTONIX 40 mg Route: IVP; Site: right antecubital; ph 10:00 Follow up: Response: No adverse reaction ph 09:06 Drug: Demerol 25 mg Route: IVP; Site: right antecubital; ph 09:25 Follow up: Response: No adverse reaction; Pain is unchanged, physician notified ph 09:43 Drug: Demerol 25 mg Route: IVP; Site: right antecubital; ph 10:35 Follow up: Response: No adverse reaction; Pain is unchanged, physician notified ph 11:40 Drug: Demerol 25 mg Route: IVP; Site: right antecubital; ph 12:00 Follow up: Response: No adverse reaction; Pain is unchanged, physician notified ph 13:15 Drug: ProTONIX 8 mg/hr Route: IV; Rate: 25 ml/hr; Site: left forearm; ph 13:25 Follow up: Response: No adverse reaction; IV Status: Infusion continued upon admission ph Outcome: 09:55 Decision to Hospitalize by Provider. rn 13:25 Patient left the ED. ph 13:25 Admitted to Tele accompanied by tech, via wheelchair, with chart. ph 13:25 Condition: stable 13:25 Instructed on the need for admit. Signatures: Kim Bush Roman, MD MD rn Harrell, Venessa vh Hall, Patricia, RN RN ph Baxter, Heather, RN RN hb Martinez, Maria [facility] Natalie West am Anju Pope RN RN ea Davies, Jonathon, RN RN jd3 Corrections: (The following items were deleted from the chart) 07:39 07:36 General: Appears ph ph
[2017-07-28] MEDS ORDERED: PANTOPRAZOLE INJ 80 MG in NA CHLORIDE 0.9% 250 ML IV ONE (10:30)
[2017-07-28] MEDS ORDERED: ACETAMINOPHEN 500 MG TAB PO PRN (11:09)
[2017-07-28 13:42] VITALS: O2SAT 99
[2017-07-28 14:28] VITALS: BMI 31.6
--- NOTE | 2017-07-28 14:49 | ECHO ---
HEIGHT: 5 ft 8 in WEIGHT: 208 lb 0 oz DATE OF STUDY: 07/28/[address]: Melina Vanegas MD 2-DIMENSIONAL: YES M.MODE: YES DOPPLER: YES COLOR FLOW: YES TDS: NO PORTABLE: NO DEFINITY: NO BUBBLE STUDY: NO DIAGNOSIS: CHEST PAIN CARDIAC HISTORY: CATHERIZATION: NO SURGERY: NO PROSTHETIC VALVE: NO PACEMAKER: NO MEASUREMENTS (cm) DIASTOLIC (NORMALS) SYSTOLIC (NORMALS) IVSd 1.1 (0.6-1.2) LA Diam 3.5 (1.9-4.0) LVEF 57% LVIDd 5.0 (3.5-5.7) LVIDs 3.5 (2.0-3.5) %FS 30% LVPWd 1.0 (0.6-1.2) Ao Diam 3.0 (2.0-3.7) 2 DIMENSIONAL ASSESSMENT: RIGHT ATRIUM: NORMAL LEFT ATRIUM: NORMAL RIGHT VENTRICLE: NORMAL LEFT VENTRICLE: NORMAL TRICUSPID VALVE: NORMAL MITRAL VALVE: NORMAL PULMONIC VALVE: NORMAL AORTIC VALVE: NORMAL PERICARDIAL EFFUSION: NONE AORTIC ROOT: NORMAL LEFT VENTRICULAR WALL MOTION: NORMAL DOPPLER/COLOR FLOW: NORMAL COMMENTS: NORMAL 2D ECHOCARDIOGRAM WITH DOPPLER. TECHNOLOGIST: Zeke WATSON
[2017-07-28] MEDS ORDERED: HYDROCODONE/APAP 10/325 TAB PO PRN (15:00)
[2017-07-28 16:18] VITALS: BP 120/87; TEMP 97.4
--- NOTE | 2017-07-28 16:48 | P.SSS ---
Patient History Date of Service: 07/28/17 Primary Care Provider: PCP - In [place] Reason for admission: Chest pain History of Present Illness: 61-year-old male with history of hyperlipidemia, hyperthyroidism, chronic pain, who presented to the ED with chest pain and hematemesis. The patient reports the chest pain started to the sub sternal region. It radiated to the left side. He rated the pain about a 9.5/10. Pain is dull and central chest area. The patient reported some hematemesis as well. The patient reports that he is taking aspirin and Xarelto. He further reports that he has had a history of coronary artery disease with previous ME x2 with stent placed in the past. He is taking Xarelto because of a history of recurrent pulmonary embolism and DVT. He further reports that he has an IVC filter in place. The patient did come to the ER month ago with similar story and a from the ER and he was not given any pain medications. Patient does have similar admission in the past in 2017 for similar symptoms again he left AMA at that time due to not receiving pain medications as well. When I saw the patient in the ER, he did not appear in any acute distress. No vomiting was noted. No or nausea. He does not smoke. He drinks on occasion. There is a family history of heart disease. Allergies morphine Allergy (Verified 07/28/17 13:39) Unknown Home Medications: Aspirin 81 mg PO DAILY 10/01/14 Atorvastatin Calcium [Lipitor] 40 mg PO DAILY 10/01/14 Levothyroxine [Synthroid*] 50 mcg PO DAILY #30 tab 06/08/15 Zolpidem Tartrate [Ambien] 10 mg PO BEDTIME PRN #30 tablet 06/08/15 Ferrous Sulfate [Ferrous Sulfate*] 325 mg PO TID 05/08/16 Pantoprazole Sodium [Protonix] 20 mg PO DAILY 05/08/16 Rivaroxaban [Xarelto] 20 mg PO DAILY 05/08/16 Thiamine HCl 100 mg PO DAILY 10/28/16 - Past Medical/Surgical History Has patient received pneumonia vaccine in the past: No Diabetic: No -: Coronary artery disease, stent -: Hyperlipidemia -: Hypothyroidism -: History of recurrent DVT/PE, IVC filter placement, anti coagulation -: Anemia -: Hypothyroidism -: Chronic pain -: History of gastric sleeve -: GERD -: Cardiac stents -: IVC filter -: Gastric sleeve Psychosocial/ Personal History: The patient is . He has 3 children. He is retired. He is visiting his son in the area. - Family History Mother -: Heart disease, Hypertension, Diabetes, Cancer - Social History Smoking Status: Never smoker Alcohol use: Yes CD- Drugs: No Caffeine use: Yes Place of Residence: Home Review of Systems 10-point ROS is otherwise unremarkable General: As per HPI Physical Examination - Vital Signs Temperature: 97.4 F Blood Pressure: 120/87 Pulse: 61 Respirations: 16 Pulse Ox (%): 97 - Physical Exam General: Alert, In no apparent distress, Oriented x3 HEENT: Atraumatic, PERRLA, Mucous membr. moist/pink, EOMI, Sclerae nonicteric Neck: Supple, 2+ carotid pulse no bruit, No LAD, Without JVD or thyroid abnormality Respiratory: Clear to auscultation bilaterally, Normal air movement Cardiovascular: Regular rate/rhythm, Normal S1 S2 Gastrointestinal: Normal bowel sounds, No tenderness Musculoskeletal: No tenderness Integumentary: No rashes Neurological: Normal gait, Normal speech, Normal strength at 5/5 x4 extr, Normal tone, Normal affect Lymphatics: No axilla or inguinal lymphadenopathy - Studies Laboratory Data (last 24 hrs) 07/28/17 08:50: PT 10.6, INR 0.90, APTT 33.5 07/28/17 08:50: WBC 3.6 L, Hgb 13.3 L, Hct 41.6, Plt Count 237 07/28/17 08:50: B-Natriuretic Peptide 10 07/28/17 08:50: Sodium 140, Potassium 4.2, BUN 13, Creatinine 0.88, Glucose 84, Magnesium 2.5 D, Total Bilirubin 0.8, AST 21, ALT 13, Alkaline Phosphatase 99 - Diagnosis (Problem(s)) (1) Chest pain Onset Date: 06/05/15 Current Visit: No Status: Resolved Qualifiers: Chest pain type: unspecified (2) CAD (coronary artery disease), [place] coronary artery Current Visit: No Status: Chronic Qualifiers: [place] vs. transplanted heart: [place] heart Associated angina: without angina Qualified Code(s): I25.10 - Atherosclerotic heart disease of [place] coronary artery without angina pectoris (3) Hematemesis Current Visit: No Status: Acute Qualifiers: Nausea presence: without nausea Qualified Code(s): K92.0 - Hematemesis (4) Hypertension Onset Date: 05/10/16 Current Visit: No Status: Chronic Qualifiers: Hypertension type: essential hypertension Qualified Code(s): I10 - Essential (primary) hypertension (5) Pulmonary embolism Current Visit: No Status: Chronic Qualifiers: Pulmonary embolism type: other Chronicity: chronic Acute cor pulmonale presence: without acute cor pulmonale Qualified Code(s): I27.82 - Chronic pulmonary embolism (6) S/P IVC filter Current Visit: No Status: Chronic (7) Hyperlipidemia Onset Date: 05/10/16 Current Visit: No Status: Chronic Qualifiers: Hyperlipidemia type: mixed hyperlipidemia Qualified Code(s): E78.2 - Mixed hyperlipidemia (8) Hypothyroidism Onset Date: 05/10/16 Current Visit: No Status: Chronic Qualifiers: Hypothyroidism type: acquired Qualified Code(s): E03.9 - Hypothyroidism, unspecified Treatment Summary: Overall during the hospital stay patient remained stable The patient was initially admitted to the hospital for chest pain. Atypical chest pain. Troponin x2 was negative EKG was within normal limits and did not show any acute changes in the ST segment. Echocardiogram was done which was completely within normal limits as well. Patient was notified of these results. No further hematemesis was noticed here in the hospital patient did not have any hematemesis episode in the ED as well. Patient's hemoglobin remained stable while here in the hospital as well. Patient at which time was told that his cardiac workup is negative and then he could follow up with his primary care doctor in his hospice registered nurse in [place] for further care. While here in the hospital patient was requesting to get pain medication and stated that he is allergic to morphine and [place] does not work for him and thus he would like to get Dilaudid IV for fentanyl patch to help with his chest pain. Patient was educated extensively on narcotic usage and was told that IV medications will not be administered at this time for his chest pain and patient can detect tramadol. Have which time patient proceeded to say that he does not want intake tramadol and was only thing and IV medications. Patient data was entered on prescription monitoring program outside and was found that patient has a different prescriber and several prescription for pain medications along with Zainabien. Patient refused that he got any prescription and has filled up any prescriptions. Again patient was educated extensively on narcotic abuse and was asked to take medication as per prescription only. Patient was also asked to establish care with a primary care doctor and a hospice registered nurse here in town if he was to move here with change of insurance. Patient stated that he does not intend to locally here. Patient was given discharge instructions along with instructions to resume all his home medication as prescribed by his primary care doctor in his hospice registered nurse. Patient was asked to follow up with him in about 2 weeks post discharge. - Disposition Disposition: ROUTINE DISCHARGE Condition: GOOD Patient Discharge Instructions: Please f/u with Cardiology in 1 to 2 week post discharge. You were admitted here for Chest pain and had troponin negative ekg was WNL and 2d Echo was Normal. You will need to f/u with PCP and Straightener Hand in 1 to 2 weeks post discharge. Diet: Regular Activity: Ad julio cesar
[2017-07-28] MEDS ORDERED: ATORVASTATIN 40 MG TAB PO SCH (21:00)
[2017-07-29] MEDS ORDERED: LEVOTHYROXINE SOD 0.05 MG TABLET PO SCH (06:00)
[2017-07-29] MEDS ORDERED: PANTOPRAZOLE 40MG TABLET PO SCH (07:30)
[2017-07-29] MEDS ORDERED: RIVAROXABAN 20 MG TABLET PO SCH (08:00)
== END 2017-07-28 16:36 | disposition home or self-care (01) ==
LOC: ER 06:46 → ERHOLD 09:59 → 4TH 13:03
PROVIDERS: ADMIT Family Medicine; ATTEND Family Medicine
DX: R07.9 Chest pain, unspecified (principal); K92.0 Hematemesis; E78.5 Hyperlipidemia, unspecified; I10 Essential (primary) hypertension; I25.10 Atherosclerotic heart disease of native coronary artery without angina pectoris; E03.9 Hypothyroidism, unspecified; G89.29 Other chronic pain; Z86.718 Personal history of other venous thrombosis and embolism; Z79.01 Long term (current) use of anticoagulants; Z86.711 Personal history of pulmonary embolism; Z98.84 Bariatric surgery status; Z95.5 Presence of coronary angioplasty implant and graft
CPT/HCPCS: 36415; 71045; 80048; 80076; 82550; 82553; 83735; 83880; 84484; 85025; 85610; 85730; 86850 ×2; 86900; 86901; 93005; 93306; 99285; C9113 ×2; G0378 ×2; J2175 ×3; J2405